=== PATIENT | female | born 1950 | race Caucasian/White ===

== ENCOUNTER 2017-07-07 12:35 | Inpatient (IN) | payer OTHER, MEDICARE ==
[~2017-07-07] VITALS: Ht 167.6 cm; Wt 63.0 kg
[2017-07-07] VITALS (7 sets, daily range): BP systolic 92–209; BP diastolic 60–135; PULSE 86–110; RESP 15–20; TEMP 97.8–98.7; O2SAT 95–98
[2017-07-07] MEDS ORDERED: SODIUM CHLOR 0.9% 1000 ML INJ 1,000 ML IV SCH (14:20)
[2017-07-07] MEDS ORDERED: MORPHINE SULFATE 4 MG/ML INJ IV PUSH ONE (14:30)
[2017-07-07] MEDS ORDERED: SODIUM CHLORIDE 0.9% FLUSH 5 ML FLUSH IV FLUSH PRN (14:30)
[2017-07-07 15:10] LABS: AUTOMATED NEUTROPHIL # 19.9 TH/MM3 (1.8-7.7); BASOPHIL % 0.2 % (0.0-2.0); HEMATOCRIT 33.3 % (35.0-46.0); HEMO FLAGS DIFF FINAL; LYMPH % 6.2 % (9.0-44.0); LYMPHOCYTE # 1.4 TH/MM3 (1.0-4.8); MEAN CELL VOLUME 91.1 FL (80.0-100.0); MEAN CORPUSCULAR HEMOGLOBIN 29.9 PG (27.0-34.0); MEAN CORPUSCULAR HGB CONC 32.8 % (32.0-36.0); MONO % 6.4 % (0.0-8.0); NEUT % 87.2 % (16.0-70.0); PLATELET COUNT 310 TH/MM3 (150-450); RED BLOOD COUNT 3.66 MIL/MM3 (4.00-5.30); RED CELL DISTRIBUTION WIDTH 13.2 % (11.6-17.2); WHITE BLOOD COUNT 22.9 TH/MM3 (4.0-11.0)
[2017-07-07 15:19] LABS: PROTHROMBIN TIME - PATIENT 11.5 SEC (9.8-11.6)
[2017-07-07 15:33] LABS: ANION GAP 7 MEQ/L (5-15); AST (GOT) 19 U/L (15-37); BICARBONATE 27.5 MEQ/L (21.0-32.0); BLOOD UREA NITROGEN 22 MG/DL (7-18); CHLORIDE 109 MEQ/L (98-107); GLOMERULAR FILTRATION RATE 21 ML/MIN (>89); POTASSIUM 4.3 MEQ/L (3.5-5.1); SODIUM (NA) 143 MEQ/L (136-145)
[2017-07-07 15:37] LABS: ALKALINE PHOSPHATASE 90 U/L (45-117); ALT (GPT) 24 U/L (10-53); CREATINE KINASE 214 U/L (26-192); TOTAL BILIRUBIN ADULT 0.5 MG/DL (0.2-1.0)
--- NOTE | 2017-07-07 15:39 | RADRPT ---
EXAM DATE/TIME: 07/07/2017 15:03 [facility] COMPARISON: No previous studies available for comparison. INDICATIONS : Right hip pain after fall. MEDICAL HISTORY : None. SURGICAL HISTORY : None. ENCOUNTER: Initial ACUITY: 1 day PAIN SCORE: Non-responsive. LOCATION: Right Hip. FINDINGS: Examination of the right hip was performed with AP Pelvis. Displaced complete fracture of the right f emoral neck. CONCLUSION: Displaced right femoral neck fracture. Bar Horne MD on July 07, 2017 at 15:34 Board Certified Radiologist. This report was verified electronically.
--- NOTE | 2017-07-07 15:41 | RADRPT ---
EXAM DATE/TIME: 07/07/2017 15:03 [facility] COMPARISON: No previous studies available for comparison. INDICATIONS : Right knee pain after fall. MEDICAL HISTORY : None. SURGICAL HISTORY : None. ENCOUNTER: Initial ACUITY: 1 day PAIN SCORE: Non-responsive. LOCATION: Right Knee. FINDINGS: Four view examination of the right knee demonstrates no evidence of fracture or dislocation. Mild ost eoarthritis. No fracture or effusion. The soft tissues are prominent. CONCLUSION: Mild osteoporosis without fracture. Soft tissue swelling. Bar Horne MD on July 07, 2017 at 15:37 Board Certified Radiologist. This report was verified electronically.
[2017-07-07 15:50] LABS: CKMB 2.4 NG/ML (0.5-3.6)
[2017-07-07] MEDS ORDERED: VANCOMYCIN INJ 1,000 MG in SODIUM CHLOR 0.9% 250 ML INJ 250 ML IV ONE (16:15)
[2017-07-07] MEDS ORDERED: PIPERACIL-TAZO 4.5 GM PREMIX 100 ML IV ONE (16:15)
[2017-07-07] MEDS ORDERED: SODIUM CHLOR 0.9% 1000 ML INJ 1,000 ML IV ONE (16:15)
--- NOTE | 2017-07-07 16:21 | PD ---
HPI Chief Complaint: Fall Time Seen by Provider: 14:09 Travel History International Travel<30 days: No Contact w/Intl Traveler<30days: No Traveled to known affect area: No History of Present Illness HPI Patient was brought in from home by EMS. She lives with her and I'm getting the history from her directly. He says that patient has significant dementia and that time she is cooperative but then at times she does get combative. She has had the diagnosis of dementia for 4-5 years. Patient used to be a hospice nurse prior to that. Last night he was trying to clean her up in the bathroom when she became combative and flung backwards and fell against the bathtub. He try to get her back into the wheelchair and she seemed like she was in pain. She slept through the night and in the morning when he tried to get her up again she seemed like she was complaining of right hip or right knee pain. That's when he decided to bring her to the emergency room. He called 911. Patient is mostly noncommunicative at this point but seems to be in pain and distress. She is a full code at this point. She was tachycardic upon arrival. Patient is unable to give any meaningful history. [facility] Past Medical History Narrative Medical List of her past medical, surgical, social and family history is reviewed from the nursing note. Social History Tobacco Use: No Allergies-Medications (Allergen,Severity, Reaction): Coded Allergies: No Known Allergies (Unverified , 07/07/17) Comments No known drug allergies. Reported Meds & Prescriptions Reported Meds & Active Scripts Active Narrative Medication Awaiting for the nurse to the med reconciliation. Review of Systems Except as stated in HPI: all other systems reviewed are Neg Physical Exam Narrative GENERAL: Lethargic, dementia, confused, nonverbal, moderate distress SKIN: Focused skin assessment warm/dry. HEAD: Atraumatic. Normocephalic. EYES: Pupils equal and round. No scleral icterus. No injection or drainage. ENT: No nasal bleeding or discharge. Mucous membranes pink and moist. NECK: Trachea midline. No JVD. CARDIOVASCULAR: Regular rate and rhythm. No murmur appreciated. RESPIRATORY: No accessory muscle use. Clear to auscultation. Breath sounds equal bilaterally. GASTROINTESTINAL: Abdomen soft, non-tender, nondistended. Hepatic and splenic margins not palpable. MUSCULOSKELETAL: Slight right leg length shortening. No clubbing. No cyanosis. No edema. Patient seems to grimace and is in pain when the right leg at the hip or the knee joint is try to be moved. NEUROLOGICAL: GCS of 12. No obvious cranial nerve deficits. Motor grossly within normal limits. Mostly nonverbal PSYCHIATRIC: Appropriate mood and affect; insight and judgment normal. Data Data Last Documented VS Vital Signs Date Time Temp Pulse Resp B/P (MAP) Pulse Ox O2 Delivery O2 Flow Rate FiO2 07/07/17 16:08 94 18 121/60 (80) 97 Room Air 07/07/17 13:06 97.8 Orders Orders Hip, Uni(Ap&Lat) W Ap Pelvis (07/07/17 ) Knee, Complete (4vws) (07/07/17 ) Electrocardiogram (07/07/17 14:20) Complete Blood Count With Diff (07/07/17 14:20) Comprehensive Metabolic Panel (07/07/17 14:20) Creatine Kinase (Cpk) (07/07/17 14:20) Prothrombin Time / Inr (Pt) (07/07/17 14:20) Troponin I (07/07/17 14:20) Urinalysis - C+S If Indicated (07/07/17 14:20) Blood Glucose (07/07/17 14:20) Ecg Monitoring (07/07/17 14:20) Iv Access Insert/Monitor (07/07/17 14:20) Oximetry (07/07/17 14:20) Sodium Chloride 0.9% Flush (Ns Flush) (07/07/17 14:30) Sodium Chlor 0.9% 1000 Ml Inj (Ns 1000 M (07/07/17 14:20) Morphine Inj (Morphine Inj) (07/07/17 14:30) Lactic Acid (07/07/17 15:25) Blood Culture (07/07/17 15:25) CKMB (07/07/17 14:45) CKMB% (07/07/17 14:45) Sodium Chlor 0.9% 1000 Ml Inj (Ns 1000 M (07/07/17 16:15) Piperacil-Tazo 4.5 Gm Premix (Zosyn 4.5 (07/07/17 16:15) Vancomycin Inj (Vancomycin Inj) (07/07/17 16:15) ^ Straight Catheter (07/07/17 16:21) Chest, Single Ap (07/07/17 ) Admit Order (Ed Use Only) (07/07/17 16:24) Consult Orthopedic (07/07/17 ) Labs Laboratory Tests Test 07/07/17 14:45 White Blood Count 22.9 TH/MM3 Red Blood Count 3.66 MIL/MM3 Hemoglobin 10.9 GM/DL Hematocrit 33.3 % Mean Corpuscular Volume 91.1 FL Mean Corpuscular Hemoglobin 29.9 PG Mean Corpuscular Hemoglobin Concent 32.8 % Red Cell Distribution Width 13.2 % Platelet Count 310 TH/MM3 Mean Platelet Volume 8.8 FL Neutrophils (%) (Auto) 87.2 % Lymphocytes (%) (Auto) 6.2 % Monocytes (%) (Auto) 6.4 % Eosinophils (%) (Auto) 0.0 % Basophils (%) (Auto) 0.2 % Neutrophils # (Auto) 19.9 TH/MM3 Lymphocytes # (Auto) 1.4 TH/MM3 Monocytes # (Auto) 1.5 TH/MM3 Eosinophils # (Auto) 0.0 TH/MM3 Basophils # (Auto) 0.0 TH/MM3 CBC Comment DIFF FINAL Differential Comment Prothrombin Time 11.5 SEC Prothromb Time International Ratio 1.0 RATIO Blood Urea Nitrogen 22 MG/DL Creatinine 2.03 MG/DL Random Glucose 175 MG/DL Total Protein 6.7 GM/DL Albumin 3.4 GM/DL Calcium Level 8.2 MG/DL Alkaline Phosphatase 90 U/L Aspartate Amino Transf (AST/SGOT) 19 U/L Alanine Aminotransferase (ALT/SGPT) 24 U/L Total Bilirubin 0.5 MG/DL Sodium Level 143 MEQ/L Potassium Level 4.3 MEQ/L Chloride Level 109 MEQ/L Carbon Dioxide Level 27.5 MEQ/L Anion Gap 7 MEQ/L Estimat Glomerular Filtration Rate 21 ML/MIN Total Creatine Kinase 214 U/L Creatine Kinase MB 2.4 NG/ML Creatine Kinase MB % 1.1 % Troponin I 0.04 NG/ML [facility] Medical Decision Making Medical Screen Exam Complete: Yes Emergency Medical Condition: Yes Medical Record Reviewed: Yes Differential Diagnosis Right hip fracture, right knee fracture, UTI, intracranial bleed Narrative Course 4:20 PM x-ray shows right femoral neck fracture. Blood test results is suggestive of leukocytosis and possibly sepsis. Patient has been given 2 L of IV fluid bolus and I ordered IV Zosyn and vancomycin to cover infection. For UA and lactic acid. Patient has renal failure. Awaiting for the orthopedist to call back and the hospitalist for admission. Procedures EKG Prior to Arrival: No Physician Communication Physician Communication Dr. Culp Diagnosis Primary Impression: Femoral neck fracture Qualified Codes: S72.001A - Fracture of unspecified part of neck of right femur, initial encounter for closed fracture Additional Impressions: Sepsis Qualified Codes: A41.9 - Sepsis, unspecified organism Renal insufficiency Dementia Qualified Codes: F03.91 - Unspecified dementia with behavioral disturbance Admitting Information Admitting Physician Requests: Admit Scripts Calcium Carbonate-Vitamin D (Calcium 600+D 200) 600-200 Mg-Unit Tab 1 TAB PO BID for Nutritional Supplement, #90 TAB 0 Refills Prov: Yasmany Bergeron Jr. 07/08/17 Ergocalciferol (Ergocalciferol) 50,000 Unit Cap 98495 UNITS PO Q7D for Nutritional Supplement, #8 CAP Prov: Yasmany Bergeron Jr. 07/08/17 Rivaroxaban (Xarelto) 10 Mg Tab 10 MG PO DAILY for Blood Clot Prevention, #14 TAB 0 Refills Prov: Yasmany Bergeron Jr. 07/08/17 Hydrocodone-Acetaminophen (Hydrocodone-Acetaminophen) 7.5-325 mg Tab 1 TAB PO Q4H Y for PAIN, #50 TAB 0 Refills Prov: Yasmany Bergeron Jr. 07/08/17 Dariela Vidal MD Jul 07, 2017 16:21
--- NOTE | 2017-07-07 16:47 | RADRPT ---
EXAM DATE/TIME: 07/07/2017 16:30 [facility] COMPARISON: No previous studies available for comparison. INDICATIONS : Syncope, pre op right hip fracture. MEDICAL HISTORY : unobtainable SURGICAL HISTORY : unobtainable ENCOUNTER: Subsequent ACUITY: 1 day PAIN SCORE: Non-responsive. LOCATION: Bilateral chest FINDINGS: Portable AP view of the chest demonstrates a normal-sized cardiac silhouette. No effusion, consolidat ion, or pneumothorax is visualized. The bones and soft tissues demonstrate no acute abnormality. Ther e degenerative changes of the thoracic spine with mild dextroscoliosis. CONCLUSION: No acute cardiopulmonary abnormality is identified. Roel King MD on July 07, 2017 at 16:45 Board Certified Radiologist. This report was verified electronically.
[2017-07-07 16:56] LABS: BLOOD, URINE NEG (NEG); GLUCOSE,URINE NEG (NEG); HYALINE CAST, URINE 4 /lpf (RARE); KETONE, URINE 10 mg/dL (NEG); MUCUS URINE FEW /lpf (OCC); NITRITE,URINE NEG (NEG); PH, URINE 6.5 (5.0-8.5); URINE COLOR YELLOW (YELLW/STRAW)
[2017-07-07 16:58] LABS: COMMENT (UR) CATH-CULT NOT IND; CULTURE IF INDICATED CATH CULTURE NOT IND
[2017-07-07] MEDS ORDERED: ACETAMINOPHEN 325 MG TAB PO PRN (17:00)
[2017-07-07] MEDS ORDERED: ONDANSETRON HCL 4 MG/2 ML VIAL IVP PRN (17:00)
[2017-07-07] MEDS ORDERED: SODIUM CHLORIDE 0.9% FLUSH 10 ML FLUSH IV FLUSH PRN (17:00)
[2017-07-07] MEDS ORDERED: BISACODYL 10 MG SUPP RECTAL PRN (17:00)
[2017-07-07] MEDS ORDERED: NALOXONE HCL 0.4 MG/ML AMP IV PUSH PRN (17:00)
[2017-07-07] MEDS ORDERED: LACTULOSE SYRUP 20 GM/30 ML CUP PO PRN (17:00)
[2017-07-07] MEDS ORDERED: MAGNESIUM HYDROXIDE SUSP 30 ML CUP PO PRN (17:00)
[2017-07-07] MEDS ORDERED: SENNOSIDES 8.6 MG TAB PO PRN (17:00)
[2017-07-07] MEDS ORDERED: Vancomycin Consult Pharmacy 1 EA OTHER SCH (17:15)
--- NOTE | 2017-07-07 17:15 | HHI.HP ---
[facility] No Primary Care Physician Admission Diagnosis hip fracture, dementia, sepsis, renal insufficiency Diagnoses: Chief Complaint: fall Travel History International Travel<30 Days: No Contact w/Intl Traveler <30 Da: No Traveled to Known Affected Are: No History of Present Illness This is a 67-year-old female with severe dementia who presented with a fall. History taken from patient's . Patient's stated that he tried to change her clothes but she was agitated and she fell and hit the tub. Patient did not hit her head and did not lose any consciousness. When tried to move patient she was in pain so he took her to the hospital. stated that patient has been diagnosed with dementia like 4-5 years ago. She was told by a neurologist here that she has senile dementia . At baseline patient does not speak. He stated maybe once in a while she would say some words. She intermittently follows commands and becomes agitated at times. This has been worsening over time. Patient has good appetite. She is in a diaper. Dealt with patient's nurse and she stated that patient has stool in her vaginal area and around her urethra area. denied any changes in behavior before her fall. Denies any fevers or chills. He stated that she was acting her normal self before the fall. Patient has not had labs done in many years. Unsure if patient has chronic kidney disease but stated that he was never told this. Unable to get review of system since patient's severe dementia. Patient is nonverbal. Past Family Social History Past Medical History Severe dementia Depression Past Surgical History Per patient's he does not recall any surgeries. Reported Medications Namenda Lamictal Allergies: Coded Allergies: No Known Allergies (Unverified , 07/07/17) Active Ordered Medications Current Medications IV Flush (NS Flush) 2 ml UNSCH PRN IV FLUSH FLUSH AFTER USING IV ACCESS; Start 07/07/17 at 14:30; Stop 07/07/17 at 17:07; Status DC Sodium Chloride 1,000 ml @ 1,000 mls/hr Q1H IV Last administered on 07/07/17 14:47; Start 07/07/17 at 14:20; Stop 07/07/17 at 15:19; Status DC Morphine Sulfate (Morphine Inj) 4 mg ONCE ONCE IV PUSH Last administered on 14:47; Start 07/07/17 at 14:30; Stop 07/07/17 at 14:31; Status DC Sodium Chloride 1,000 ml @ 999 mls/hr BOLUS ONCE IV Last administered on 07/07 16:53; Start 07/07/17 at 16:15; Stop 07/07/17 at 17:15; Status DC Piperacillin Sod/ Tazobactam Sod 100 ml @ 200 mls/hr ONCE ONCE IV Last administered on 07/07/17 16:53; Start 07/07/17 at 16:15; Stop 07/07/17 at 16:44 ; Status DC Vancomycin HCl 1000 mg/Sodium Chloride 250 ml @ 250 mls/hr ONCE ONCE IV Last administered on 07/07/17 16:53; Start 07/07/17 at 16:15; Stop 07/07/17 at 17:14 ; Status DC Sodium Chloride 1,000 ml @ 100 mls/hr Q10H IV ; Start 07/07/17 at 17:00 Sodium Chloride (NS Flush) 2 ml UNSCH PRN IV FLUSH FLUSH AFTER USING IV ACCESS ; Start 07/07/17 at 17:00 Sodium Chloride (NS Flush) 2 ml BID IV FLUSH ; Start 07/07/17 at 21:00 Acetaminophen (Tylenol) 650 mg Q4H PRN PO TEMP > 100.4; Start 07/07/17 at 17:00 Ondansetron HCl (Zofran Inj) 4 mg Q6H PRN IVP NAUSEA OR VOMITING; Start at 17:00 Naloxone HCl (Narcan Inj) 0.4 mg UNSCH PRN IV PUSH SEE LABEL COMMENTS; Start at 17:00 Senna/Docusate Sodium (Renuka-Colace) 1 tab BID PO ; Start 07/07/17 at 21:00 Magnesium Hydroxide (Milk Of Magnesia Liq) 30 ml Q12H PRN PO MILD - MODERATE CONSTIPATION; Start 07/07/17 at 17:00 Sennosides (Senokot) 17.2 mg Q12H PRN PO MODERATE - SEVERE CONSTIPATION; Start 07/07/17 at 17:00 Bisacodyl (Dulcolax Supp) 10 mg DAILY PRN RECTAL SEVERE CONSITIPATION; Start at 17:00 Lactulose (Lactulose Liq) 30 ml DAILY PRN PO SEVERE CONSITIPATION; Start at 17:00 Pharmacy Profile Note 0 ml @ 0 mls/hr UNSCH OTHER ; Start 07/07/17 at 17:15 Cefepime HCl 1000 mg/Sodium Chloride 100 ml @ 200 mls/hr Q24H IV ; Start at 18:00 Family History Father had a history of heart disease at the age of 80. Mother had MS at the age of 59. Social History Patient lives with her . She was able to ambulate prior to this event. She relies 100% on her . No history of alcohol, tobacco or illicit drug use. Physical Exam Vital Signs Vital Signs Date Time Temp Pulse Resp B/P (MAP) Pulse Ox O2 Delivery O2 Flow Rate FiO2 07/07/17 13:06 97.8 110 20 118/72 (87) 98 Physical Exam GENERAL: This is frail thin female in NAD SKIN: No rashes, ecchymoses or lesions. Cool and dry. HEAD: Atraumatic. Normocephalic. No temporal or scalp tenderness. EYES: Pupils equal round and reactive. Extraocular motions intact. No scleral icterus. No injection or drainage. ENT: Nose without bleeding, purulent drainage or septal hematoma. Throat without erythema, tonsillar hypertrophy or exudate. Uvula midline. Airway patent. NECK: Trachea midline. No JVD or lymphadenopathy. Supple, nontender, no meningeal signs. CARDIOVASCULAR: Regular rate and rhythm without murmurs, gallops, or rubs. RESPIRATORY: Clear to auscultation. Breath sounds equal bilaterally. No wheezes , rales, or rhonchi. GASTROINTESTINAL: Abdomen soft, non-tender, nondistended. No hepato-splenomegaly , or palpable masses. No guarding. MUSCULOSKELETAL: Negative lower ext edema. NEUROLOGICAL: patient is awake but is nonverbal. Moves her upper extremities freely. Exam limited secondary to severe dementia. When I try to move patient she grimace. Laboratory Laboratory Tests Test 07/07/17 14:45 07/07/17 16:35 White Blood Count 22.9 Red Blood Count 3.66 Hemoglobin 10.9 Hematocrit 33.3 Mean Corpuscular Volume 91.1 Mean Corpuscular Hemoglobin 29.9 Mean Corpuscular Hemoglobin Concent 32.8 Red Cell Distribution Width 13.2 Platelet Count 310 Mean Platelet Volume 8.8 Neutrophils (%) (Auto) 87.2 Lymphocytes (%) (Auto) 6.2 Monocytes (%) (Auto) 6.4 Eosinophils (%) (Auto) 0.0 Basophils (%) (Auto) 0.2 Neutrophils # (Auto) 19.9 Lymphocytes # (Auto) 1.4 Monocytes # (Auto) 1.5 Eosinophils # (Auto) 0.0 Basophils # (Auto) 0.0 CBC Comment DIFF FINAL Differential Comment Prothrombin Time 11.5 Prothromb Time International Ratio 1.0 Blood Urea Nitrogen 22 Creatinine 2.03 Random Glucose 175 Total Protein 6.7 Albumin 3.4 Calcium Level 8.2 Alkaline Phosphatase 90 Aspartate Amino Transf (AST/SGOT) 19 Alanine Aminotransferase (ALT/SGPT) 24 Total Bilirubin 0.5 Sodium Level 143 Potassium Level 4.3 Chloride Level 109 Carbon Dioxide Level 27.5 Anion Gap 7 Estimat Glomerular Filtration Rate 21 Total Creatine Kinase 214 Creatine Kinase MB 2.4 Creatine Kinase MB % 1.1 Troponin I 0.04 Urine Color YELLOW Urine Turbidity CLEAR Urine pH 6.5 Urine Specific Gardner 1.018 Urine Protein 30 Urine Glucose (UA) NEG Urine Ketones 10 Urine Occult Blood NEG Urine Nitrite NEG Urine Bilirubin NEG Urine Urobilinogen 2.0 Urine Leukocyte Esterase NEG Urine RBC 6 Urine WBC 1 Urine Hyaline Casts 4 Urine Mucus FEW Microscopic Urinalysis Comment CATH-CULT NOT IND Date/Time Source Procedure Growth Status 07/07/17 16:40 Blood Peripheral Aerobic Blood Culture Pending Received 07/07/17 16:40 Blood Peripheral Anaerobic Blood Culture Pending Received Result Diagram: 07/07/17 1445 07/07/17 1445 Imaging Last Impressions Knee X-Ray 07/07/17 0000 Signed Impressions: Service Date/Time: Friday, July 07, 2017 15:03 - CONCLUSION: Mild osteoporosis without fracture. Soft tissue swelling. Bar Horne MD Hip and Pelvis X-Ray 07/07/17 0000 Signed Impressions: Service Date/Time: Friday, July 07, 2017 15:03 - CONCLUSION: Displaced right femoral neck fracture. Bar Horne MD Chest X-Ray 07/07/17 0000 Signed Impressions: Service Date/Time: Friday, July 07, 2017 16:30 - CONCLUSION: No acute cardiopulmonary abnormality is identified. Roel King MD Septic Shock Reassessment Heart: Regular rate and rhythm Lungs: Clear Skin: Warm Caprini VTE Risk Assessment Caprini VTE Risk Assessment: Mod/High Risk (score >= 2) VTE Pharm Contraindication: Caprini Risk Assessment Model Point Value = 1 Point Value = 2 Point Value = 3 Point Value = 5 Age 41-60 Minor surgery BMI > 25 kg/m2 Swollen legs Varicose veins or History of unexplained or recurrent spontaneous Oral contraceptives or hormone replacement Sepsis (< 1 month) Serious lung disease, including pneumonia (< 1 month) Abnormal pulmonary function Acute myocardial infarction Congestive heart failure (< 1 month) History of inflammatory bowel disease Medical patient at bed rest Age 61-74 Arthroscopic surgery Major open surgery (> 45 min) Laparoscopic surgery (> 45 min) Malignancy Confined to bed (> 72 hours) Immobilizing plaster cast Central venous access Age >= 75 History of VTE Family history of VTE Factor V Leiden Prothrombin [id number] Lupus anticoagulant Anticardiolipin antibodies Elevated serum homocysteine Heparin-induced thrombocytopenia Other congenital or acquired thrombophilia Stroke (< 1 month) Elective arthroplasty Hip, pelvis, or leg fracture Acute spinal cord injury (< 1 month) Prophylaxis Regimen Total Risk Factor Score Risk Level Prophylaxis Regimen 0-1 Low Early ambulation 2 Moderate Order ONE of the following: *Sequential Compression Device (SCD) *Heparin 5000 units SQ BID 3-4 Higher Order ONE of the following medications: *Heparin 5000 units SQ TID *Enoxaparin/Lovenox 40 mg SQ daily (WT < 150 kg, CrCl > 30 mL/min) *Enoxaparin/Lovenox 30 mg SQ daily (WT < 150 kg, CrCl > 10-29 mL/min) *Enoxaparin/Lovenox 30 mg SQ BID (WT < 150 kg, CrCl > 30 mL/min) AND/OR *Sequential Compression Device (SCD) 5 or more Highest Order ONE of the following medications: *Heparin 5000 units SQ TID (Preferred with Epidurals) *Enoxaparin/Lovenox 40 mg SQ daily (WT < 150 kg, CrCl > 30 mL/min) *Enoxaparin/Lovenox 30 mg SQ daily (WT < 150 kg, CrCl > 10-29 mL/min) *Enoxaparin/Lovenox 30 mg SQ BID (WT < 150 kg, CrCl > 30 mL/min) AND *Sequential Compression Device (SCD) Assessment and Plan Assessment and Plan 67-year-old female with a history of severe dementia presented with a fall Right femoral neck fracture -Secondary to mechanical fall. Found on chest x-ray. -Orthopedic surgery consulted by ED. -Will give supportive care with pain control pending recommendation from orthopedic surgeon. SIRS -Patient has elevated WBC around 22,000 and heart rate 110. UA negative and chest x-ray negative. No infectious source. -Patient given Zosyn and vancomycin the ED. Will treat empirically for infection pending complete workup. Continue with vancomycin and start cefepime renally dose. We will have pharmacy dose vancomycin. -Will get blood cultures x2. Pending lactic acid. Monitor over telemetry. Give IV fluids. -Continue to monitor clinically. Renal failure -Unsure if this is acute renal failure versus chronic versus acute on chronic renal failure. There is no baseline. BUN is elevated will suggest dehydration. -Strict ins and outs. -Avoid nephrotoxins. -Continue to monitor creatinine. Severe dementia -Will resume home medication once medication is updated in the EMR system. DVT prophylaxis -Anticipating surgery. SCDs. Chemoprophylaxis per orthopedic surgeon. Due to severe dementia which will affect her rehabilitation potential patient has a poor prognosis. Code Status Extensive discussion with patient's in regards to code status. He stated that he thinks patient wants to be a DO NOT RESUSCITATE but is unsure. Per keep patient full code until he obtains advanced directive. Discussed Condition With patient's and ER nurse Physician Certification 2 Midnight Certification Type: Admission for Inpatient Services Order for Inpatient Services The services are ordered in accordance with Medicare regulations or non- Medicare payer requirements, as applicable. In the case of services not specified as inpatient-only, they are appropriately provided as inpatient services in accordance with the 2-midnight benchmark. Estimated LOS (days): 3 3 days is the estimated time the patient will need to remain in the hospital, assuming treatment plan goals are met and no additional complications. Post-Hospital Plan: [facility] Jacqueline Boateng MD Jul 07, 2017 17:15
[2017-07-07] MEDS ORDERED: MORPHINE SULFATE 4 MG/ML INJ IV PUSH PRN (18:00)
[2017-07-07] MEDS: SODIUM CHLOR 0.9% 1000 ML INJ 1,000 ML IV SCH ×2 (18:06→23:45)
[2017-07-07] MEDS: DOCUSATE SODIUM 50 MG/SENNA 8.6 MG TAB PO SCH (21:00)
[2017-07-07] MEDS: SODIUM CHLORIDE 0.9% FLUSH 10 ML FLUSH IV FLUSH SCH (21:00)
[2017-07-07] MEDS: CEFEPIME INJ 1,000 MG in SODIUM CHLORIDE 0.9% INJ 100 ML IV SCH (21:06)
--- NOTE | 2017-07-07 23:30 | EKG ---
Date Performed: 07/07/2017 Time Performed: 18:05:57 PTAGE: 89 years EKG: Sinus rhythm LOW QRS VOLTAGE IN PRECORDIAL LEADS INFERIOR MYOCARDIAL INFARCTION ABNORMAL ECG NO PREVIOUS TRACING DOCTOR: Chao Fu Interpretating Date/Time 07/07/2017 23:30:06
[2017-07-07] MEDS ORDERED: CHLORHEXIDINE GLUCONATE 2 % 1 PACK (2 CLOTHS) TOPICAL PRN (23:45)
[2017-07-07] MEDS ORDERED: POVIDONE IODINE 5% (ANTISEPSIS KIT) 4 APPLICATIONS EACH NARE PRN (23:45)
[2017-07-07] MEDS ORDERED: INSULIN HUMAN REGULAR 1,000 UNITS/10 ML VIAL SQ PRN (23:45)
[2017-07-07] MEDS ORDERED: LACTATED RINGER'S 1000 ML IV PRN (23:45)
[2017-07-08 04:00] VITALS: BP 136/71; PULSE 118; RESP 15; TEMP 98.6; O2SAT 90
[2017-07-08] MEDS: SODIUM CHLOR 0.9% 1000 ML INJ 1,000 ML IV SCH ×2 (04:56→23:00)
--- NOTE | 2017-07-08 06:42 | PD.ORT.PN ---
Subjective Subjective Remarks s/p fall at [facility] right hip pain. patient severely demented and cannot give any info Objective Vitals Vital Signs Date Time Temp Pulse Resp B/P (MAP) Pulse Ox O2 Delivery O2 Flow Rate FiO2 07/07/17 21:10 89 07/07/17 19:00 98.7 86 15 92/63 (73) 95 07/07/17 18:35 07/07/17 18:00 92 17 119/83 (95) 97 Room Air 07/07/17 16:30 92 17 117/61 (79) 97 Room Air 07/07/17 16:08 94 18 121/60 (80) 97 Room Air 07/07/17 14:06 95 18 209/135 (159) 97 Room Air 07/07/17 14:06 80 16 98 Room Air 07/07/17 13:06 97.8 110 20 118/72 (87) 98 I/O 07/07/17 07/07/17 07/07/17 07/08/17 07/08/17 07/08/17 07:00 15:00 23:00 07:00 15:00 23:00 Intake Total 2200 ml 1100 ml Balance 2200 ml 1100 ml Intake IV Total 2200 ml 1100 ml Result Diagram: 07/07/17 1445 07/07/17 1445 Other Results Laboratory Tests Test 07/07/17 14:45 Prothromb Time International Ratio 1.0 RATIO Prothrombin Time 11.5 SEC (9.8-11.6) Objective Remarks RLE: good movement of toes and foot. +cap refill distally. pain with movement of hip Assessment & Plan Assessment and Plan 1) right Intertroch hip fx -npo -consents from family -surgery today Rasheed Escobar Jul 08, 2017 06:42
[2017-07-08 07:05] LABS: HEMATOCRIT 23.2 % (35.0-46.0); MEAN CELL VOLUME 91.5 FL (80.0-100.0); MEAN CORPUSCULAR HEMOGLOBIN 30.3 PG (27.0-34.0); MEAN CORPUSCULAR HGB CONC 33.1 % (32.0-36.0); PLATELET COUNT 210 TH/MM3 (150-450); RED BLOOD COUNT 2.53 MIL/MM3 (4.00-5.30); RED CELL DISTRIBUTION WIDTH 13.1 % (11.6-17.2); REVIEW FLAG FINAL; WHITE BLOOD COUNT 18.4 TH/MM3 (4.0-11.0)
[2017-07-08 07:25] LABS: BICARBONATE 26.8 MEQ/L (21.0-32.0)
[2017-07-08 07:39] VITALS: BP 97/67; PULSE 96; RESP 18; TEMP 97.8; O2SAT 91
[2017-07-08] MEDS: SODIUM CHLORIDE 0.9% FLUSH 10 ML FLUSH IV FLUSH SCH (09:00)
[2017-07-08] MEDS: DOCUSATE SODIUM 50 MG/SENNA 8.6 MG TAB PO SCH ×2 (09:00→21:30)
[2017-07-08] MEDS ORDERED: SODIUM CHLOR 0.9% 250 ML INJ 250 ML ONE (09:32)
[2017-07-08] MEDS ORDERED: GENTAMICIN SULFATE 80 MG/2 ML VIAL ONE (09:32)
[2017-07-08] MEDS ORDERED: VANCOMYCIN HCL 1000 MG VIAL ONE (09:32)
[2017-07-08] MEDS ORDERED: BUPIVACAINE/EPINEPHRINE 0.5% PF 10 ML VIAL ONE (09:32)
[2017-07-08] MEDS: VANCOMYCIN 1,000 MG/NS 250 ML IV SCH ×4 (10:00→21:31)
[2017-07-08] MEDS ORDERED: KETAMINE HCL 500 MG/5 ML VIAL ONE (10:04)
--- NOTE | 2017-07-08 10:33 | MB ---
cc: LINO VENCES DATE OF CONSULTATION: 07/08/2017 REASON FOR CONSULTATION Right hip intertrochanteric fracture. CONSULTING PHYSICIAN Dr. Jacqueline Boateng. HISTORY OF PRESENT ILLNESS This patient known as Mavis Montes De Oca, also known as Terri Cardona, is a 67-year-old female who has significant dementia. She had a fall yesterday. She was trying to change clothes when she fell. She did not hit her head. She had severe right hip pain. She presented to the emergency room where x-rays revealed a right hip intertrochanteric fracture. She is currently on the orthopedic floor. She is awake but significantly confused. She is unable to provide any significant history. PAST MEDICAL HISTORY ILLNESSES Dementia and depression. SURGERIES None. MEDICATIONS ___ and Lamictal. ALLERGIES None. SOCIAL HISTORY The patient lives at home with her . She does ambulate independently. There is no history of alcohol, tobacco or drug use. REVIEW OF SYSTEMS Unobtainable secondary to dementia. FAMILY HISTORY Positive for heart disease in father and MS in mother. REVIEW OF SYSTEMS Unobtainable. PHYSICAL EXAMINATION GENERAL: The patient is a thin 67-year-old female who is confused secondary to significant dementia. She is awake but unable to provide history. VITAL SIGNS: Temperature 97.8, pulse 96, respirations 18, blood pressure 97/67, O2 sat 91% on room air. HEAD: The patient is normocephalic. Pupils are equal. NECK: Soft, nontender. Trachea is midline. ABDOMEN: Soft, nontender, nondistended. EXTREMITIES: Examination of bilateral upper extremities reveals no obvious pain or deformity with shoulder, elbow or wrist motion. She has good cap refill in her fingers. Radial pulses are palpable. Examination of left leg reveals no obvious pain or deformity with hip, knee or ankle motion. Skin is intact. Dorsalis pedis pulses palpable. Examination of right leg reveals pain with any hip motion. She has no tenderness around her knee, tibia or ankle. Skin is intact. She has good cap refill in her foot. X-RAYS X-rays of right hip were reviewed. X-rays reveal a mildly displaced right hip intertrochanteric fracture. IMPRESSION 1. Dementia. 2. Osteoporosis. 3. Right hip intertrochanteric fracture. PLAN Treatment options were discussed with the patient. At this point I will try to contact her to obtain consents. The patient will need reduction, intramedullary nail fixation of right hip. Risks of surgery include bleeding, infection, injuries to arteries, nerves, blood vessels, nonunion, malunion, painful hardware as well as medical complications including blood clot, stroke, heart attack and . All questions were answered. Will plan on surgery today. A mid-level provider in my office, nurse practitioner or PA, may see this patient on a follow-up basis and continue to implement the objective of this plan including: Starting or adjusting medications, injections of muscle, tendon, bursa or joints, cast application, orthotic or brace application, physical therapy, further radiographic studies including x-ray, MRI, CT, ultrasounds or bone scan, vascular studies, neurologic studies, or other specialist consultations, and proceeding with surgical management as appropriate. MD BUD Ribeiro/JOVI /10:02 AM /10:12 AM
[2017-07-08] MEDS ORDERED: SUGAMMADEX SODIUM 200 MG/2 ML VIAL IV PUSH ONE ×2 (10:44)
[2017-07-08] MEDS ORDERED: SODIUM CHLORIDE 0.9% FLUSH 5 ML FLUSH IVF PRN (10:45)
[2017-07-08] MEDS ORDERED: diphenhydrAMINE HCL 25 MG CAP PO PRN (10:45)
--- NOTE | 2017-07-08 11:09 | PD.OP ---
cc: Willy Zacarias MD Operative Report Date of Surgery: Jul 08, 2017 Preoperative Diagnosis: Right hip intertrochanteric fracture Postoperative Diagnosis: Procedure: Right hip reduction and intramedullary nail fixation Anesthesia: Gen. Surgeon: Willy Zacarias Glost Tile Shader(s): FARTUN Rosenthal PA-C The surgical procedure was assisted by my physician workers compensation claims assistant. My P.A. presence was necessary throughout this case for the manipulation and positioning of the surgical extremity. My P.A. was assisting me throughout the duration of this procedure. The skill set of a physician workers compensation claims assistant was medically necessary to complete this procedure. During the surgical case the nursing surgical services director was working at the back table and the physician workers compensation claims assistant was directly assisting me. Operation and Findings: Implants used: [11]mm 130 Synthes TFNA short troch nail Plan of activity: Weight-bear as tolerated Patient was seen and evaluated preoperatively. The patient has significant hip pain from intertrochanteric hip fracture. The risk and benefits of surgery were discussed in depth with the patient to include bleeding infection nonunion malunion and need for hip replacement painful hardware as well as medical competitions including but not stroke heart attack and . Informed consent was obtained. Operative site was marked. Patient was brought to the operating room and placed on fracture table. IV sedation was administered by anesthesiologist. Timeout procedure was performed. Hip and leg were prepped with alcohol followed by DuraPrep and draped in the usual sterile fashion. IV antibiotics were given prior to incision. Procedure began with reduction of fracture. Traction was applied. The leg was manipulated to achieve reduction. Excellent reduction was achieved. Fluoroscopy was used to confirm reduction. A three inch incision was made proximal to the trochanter. Subcutaneous tissue was dissected bluntly. Guidepin was placed at the tip of the trochanter and advanced into the femoral canal. Fluoroscopy confirmed appropriate guidepin placement. A opening reamer was placed over the guidepin. The Synthes TFNA nail was attached to the insertion handle. Nail was now placed through the tip of the trochanter into the femoral canal. Fluoroscopy confirmed appropriate nail placement. A second incision was made over the lateral thigh. Cannulas were placed through the insertion handle down to the femur. Guidepin was now placed through the femoral nail into the center of the femoral head. Fluoroscopy confirmed appropriate guidepin placement. Screw length was measured. Cannulated drill was placed over the guidepin. Appropriate length lag screw was now placed. Traction was released and compression was applied. The set screw was now tightened in dynamic mode. Using the insertion handle as a guide a distal interlocking screw was drilled and placed. Final fluoroscopy revealed well aligned fracture with well-placed hardware. Incision was closed with 3-0 Vicryl and rashmi. Sterile dressings were applied. Patient was awakened and transferred to recovery room. Willy Zacarias MD Jul 08, 2017 10:47
[2017-07-08] MEDS ORDERED: DO NOT ADM ANY ANTICOAGULANT DRUGS PRN (11:10)
[2017-07-08] MEDS ORDERED: WALKER/ADULT/FO1 MIS (11:13)
[2017-07-08] MEDS ORDERED: ERGO1CAP30 PO (11:13)
[2017-07-08] MEDS ORDERED: CALCTAB19 PO (11:13)
[2017-07-08] MEDS ORDERED: HYDR-3580 PO (11:13)
[2017-07-08] MEDS ORDERED: XARE10TA PO (11:13)
[2017-07-08] MEDS ORDERED: *RESP: ALBUTEROL 2.5 MG/3 ML NEB (PRN) PERIprocedural Use ONLY NEB ONE (11:25)
[2017-07-08] MEDS ORDERED: ERGOCALCIFEROL (VIT D2) 50,000 UNIT CAP PO ONE (12:30)
[2017-07-08] MEDS ORDERED: ROCURONIUM INJ 50 MG/5 ML SYRINGE IV PUSH ONE (12:36)
[2017-07-08] MEDS ORDERED: ONDANSETRON HCL 4 MG/2 ML VIAL IV PUSH ONE (12:36)
[2017-07-08] MEDS ORDERED: PHENYLEPH/NS 1000 MCG/10 ML SYR IV ONE (12:36)
[2017-07-08] MEDS ORDERED: DEXAMETHASONE SOD PHOS 4 MG/ML VIAL IV ONE (12:36)
[2017-07-08] MEDS ORDERED: LIDOCAINE HCL 1% PF 5 ML AMPULE OTHER ONE (12:36)
[2017-07-08] MEDS: CALCIUM/VITAMIN D 250 MG/125 U TAB PO SCH ×2 (13:00→17:33)
--- NOTE | 2017-07-08 14:55 | RADRPT ---
EXAM DATE/TIME: 07/08/2017 10:41 [facility] COMPARISON: No previous studies available for comparison. INDICATIONS : Right hip troch nail. MEDICAL HISTORY : None. SURGICAL HISTORY : None. ENCOUNTER: Subsequent ACUITY: 1 day PAIN SCORE: Non-responsive. LOCATION: Right hip CONCLUSION: Fluoroscopic images during placement of dynamic compression pin in right hip. Bar Horne MD on July 08, 2017 at 14:53 Board Certified Radiologist. This report was verified electronically.
[2017-07-08 15:53] VITALS: BP 114/64; PULSE 81; RESP 18; TEMP 95.9; O2SAT 91
[2017-07-08] MEDS: CEFEPIME INJ 1,000 MG in SODIUM CHLORIDE 0.9% INJ 100 ML IV SCH (17:37)
--- NOTE | 2017-07-08 19:29 | HHI.PR ---
Subjective Remarks Pain controlled patient denies fevers/chills denies cp/sob no diarrhea Objective Vitals Vital Signs Date Time Temp Pulse Resp B/P (MAP) Pulse Ox O2 Delivery O2 Flow Rate FiO2 07/08/17 15:53 95.9 81 18 114/64 (81) 91 07/08/17 12:20 97.8 94 15 113/84 (94) 93 Nasal Cannula 3 07/08/17 12:00 85 17 107/74 (85) 93 Nasal Cannula 3 07/08/17 11:45 86 16 104/61 (75) 93 Nasal Cannula 3 07/08/17 11:30 85 15 124/62 (82) 95 Nasal Cannula 3 07/08/17 11:12 97.5 85 15 127/59 (81) 93 Simple Mask 6 07/08/17 07:39 97.8 96 18 97/67 (77) 91 07/08/17 04:00 98.6 118 15 136/71 (92) 90 07/07/17 21:10 89 I/O 07/07/17 07/07/17 07/07/17 07/08/17 07/08/17 07/08/17 07:00 15:00 23:00 07:00 15:00 23:00 Intake Total 2200 ml 1100 ml 85 ml Output Total 200 ml 375 ml Balance 2200 ml 900 ml -290 ml Intake Oral 0 ml 10 ml IV Total 2200 ml 1100 ml 75 ml Output Urine Total 200 ml 375 ml # Bowel Movements 0 0 Result Diagram: 07/08/17 0622 07/08/17 0622 Imaging Last Impressions Hip X-Ray 07/08/17 0000 Signed Impressions: Service Date/Time: June 10:41 - CONCLUSION: Fluoroscopic images during placement of dynamic compression pin in right hip. Bar Horne MD Knee X-Ray 07/07/17 0000 Signed Impressions: Service Date/Time: Friday, July 07, 2017 15:03 - CONCLUSION: Mild osteoporosis without fracture. Soft tissue swelling. Bar Horne MD Hip and Pelvis X-Ray 07/07/17 0000 Signed Impressions: Service Date/Time: Friday, July 07, 2017 15:03 - CONCLUSION: Displaced right femoral neck fracture. Bar Horne MD Chest X-Ray 07/07/17 0000 Signed Impressions: Service Date/Time: Friday, July 07, 2017 16:30 - CONCLUSION: No acute cardiopulmonary abnormality is identified. Roel King MD Objective Remarks GENERAL: This is frail thin female in NAD SKIN: No rashes, ecchymoses or lesions. Cool and dry. HEAD: Atraumatic. Normocephalic. No temporal or scalp tenderness. EYES: Pupils equal round and reactive. Extraocular motions intact. No scleral icterus. No injection or drainage. ENT: Nose without bleeding, purulent drainage or septal hematoma. Throat without erythema, tonsillar hypertrophy or exudate. Uvula midline. Airway patent. NECK: Trachea midline. No JVD or lymphadenopathy. Supple, nontender, no meningeal signs. CARDIOVASCULAR: Regular rate and rhythm without murmurs, gallops, or rubs. RESPIRATORY: Clear to auscultation. Breath sounds equal bilaterally. No wheezes , rales, or rhonchi. GASTROINTESTINAL: Abdomen soft, non-tender, nondistended. No hepato-splenomegaly , or palpable masses. No guarding. MUSCULOSKELETAL: Negative lower ext edema. NEUROLOGICAL: patient is awake but is nonverbal. Moves her upper extremities freely. Exam limited secondary to severe dementia. When I try to move patient she grimace. Medications and IVs Current Medications Medications (Trade) Dose Ordered Sig/Chris Route Start Time Stop Time Status Last Admin Sodium Chloride 1,000 ml @ 100 mls/hr Q10H IV 07/07/17 17:00 07/08/17 04:56 (Tylenol) 650 mg Q4H PRN PO 07/07/17 17:00 (Zofran Inj) 4 mg Q6H PRN IVP 07/07/17 17:00 (Narcan Inj) 0.4 mg UNSCH PRN IV PUSH 07/07/17 17:00 (Renuka-Colace) 1 tab BID PO 07/07/17 21:00 07/08/17 21:30 (Milk Of Magnesia Liq) 30 ml Q12H PRN PO 07/07/17 17:00 (Senokot) 17.2 mg Q12H PRN PO 07/07/17 17:00 (Dulcolax Supp) 10 mg DAILY PRN RECTAL 07/07/17 17:00 (Lactulose Liq) 30 ml DAILY PRN PO 07/07/17 17:00 Pharmacy Profile Note 0 ml @ 0 mls/hr UNSCH OTHER 07/07/17 17:15 Cefepime HCl 1000 mg/Sodium Chloride 100 ml @ 200 mls/hr Q24H IV 07/07/17 18:00 07/08/17 17:37 (Morphine Inj) 2 mg Q3H PRN IV PUSH 07/07/17 18:00 07/07/17 18:59 Lactated Ringer's 1,000 ml @ 30 mls/hr Q24H PRN IV 07/07/17 23:45 07/10/17 23:44 (Betadine 5% Antisepsis Kit) 1 applic COMPLAINT SPECIALIST PRN EACH NARE 07/07/17 23:45 07/10/17 23:44 (Chlorhexidine 2% Cloth) 3 pack COMPLAINT SPECIALIST PRN TOPICAL 07/07/17 23:45 07/10/17 23:44 (NovoLIN R INJ) See Protocol Table ... COMPLAINT SPECIALIST PRN SQ 07/07/17 23:45 07/10/17 23:44 Vancomycin HCl 1000 mg/Sodium Chloride 250 ml @ 250 mls/hr Q12H IV 07/08/17 10:00 07/08/17 21:31 Miscellaneous Information SPECIFIC LAB TO BE DRAWN:VANCOMYCIN TROUGH DATE TO... ONCE ONCE .XX 07/09/17 21:45 07/09/17 21:46 (NS Flush) 2 ml UNSCH PRN IVF 07/08/17 10:45 (NS Flush) 2 ml BID IVF 07/08/17 21:00 07/08/17 21:30 (Lovenox Inj) 30 mg Q24H SQ 07/09/17 10:00 Cefazolin Sodium 1000 mg/Sodium Chloride 100 ml @ 200 mls/hr Q8H IV 07/08/17 13:00 07/09/17 05:29 07/08/17 21:30 (Oscal-D 250-125) 250 mg TID PO 07/08/17 13:00 07/08/17 17:33 (Benadryl) 25 mg Q6H PRN PO 07/08/17 10:45 (Slater 7.5-325 Mg) 1 tab Q3H PRN PO 07/08/17 10:45 (Vitamin D3) 5,000 units DAILY PO 07/09/17 09:00 Miscellaneous Information ALL NURSING DEPARTME... UNSCH PRN .XX 07/08/17 11:10 07/09/17 11:09 A/P Assessment and Plan 67-year-old female with a history of severe dementia presented with a fall Right femoral neck fracture -Secondary to mechanical fall. Found on chest x-ray. -Orthopedic surgery consulted by ED. -Will give supportive care with pain control pending recommendation from orthopedic surgeon. - 07/08 sp Right hip surgery. Pain control as per orthopedic surgery. SIRS -Patient has elevated WBC around 22,000 and heart rate 110. UA negative and chest x-ray negative. No infectious source. -Patient given Zosyn and vancomycin the ED. Will treat empirically for infection pending complete workup. Continue with vancomycin and start cefepime renally dose. We will have pharmacy dose vancomycin. 07/08 Blood cultures negative x1. WBC down to 18 K. Continue to monitor cbc w diff. UA negative, CXR without acute disease. No skin lesions. Continue IV Vancomycin and IV Cefepime. BIANCA -Unsure if this is acute renal failure versus chronic versus acute on chronic renal failure. There is no baseline. BUN is elevated will suggest dehydration. -Strict ins and outs. -Avoid nephrotoxins. -Continue to monitor creatinine. 07/08 Creatinine improving and trending down. Continue IV fluids. Severe dementia -Will resume home medication once medication is updated in the EMR system. Anemia -Hemoglobin went down after surgical procedure. Possible acute on chronic post op anemia. Hemoglobin went down from 10 to 7.7. PAtient asymptomatic. - Transfuse for hemoglobin <7 or symptomatic anemia. DVT prophylaxis -Anticipating surgery. SCDs. Chemoprophylaxis per orthopedic surgeon. Due to severe dementia which will affect her rehabilitation potential patient has a poor prognosis. Avery Tatum MD Jul 08, 2017 19:28
[2017-07-08 20:35] VITALS: BP 125/78; PULSE 92; RESP 20; TEMP 100; O2SAT 92
[2017-07-08] MEDS: SODIUM CHLORIDE 0.9% FLUSH 5 ML FLUSH IVF SCH (21:30)
[2017-07-09] VITALS (9 sets, daily range): BP systolic 99–125; BP diastolic 59–73; PULSE 85–100; RESP 18–21; TEMP 97.7–103; O2SAT 92–100
--- NOTE | 2017-07-09 06:30 | PD.ORT.PN ---
Subjective Subjective Remarks POD 1 s/p IMN right hip confused. no complaitns. Objective Vitals Vital Signs Date Time Temp Pulse Resp B/P (MAP) Pulse Ox O2 Delivery O2 Flow Rate FiO2 07/09/17 05:23 98.6 93 20 117/59 (78) 95 07/09/17 00:20 98.9 98 21 100/62 (75) 100 07/08/17 20:35 100.0 92 20 125/78 (94) 92 07/08/17 15:53 95.9 81 18 114/64 (81) 91 07/08/17 12:20 97.8 94 15 113/84 (94) 93 Nasal Cannula 3 07/08/17 12:00 85 17 107/74 (85) 93 Nasal Cannula 3 07/08/17 11:45 86 16 104/61 (75) 93 Nasal Cannula 3 07/08/17 11:30 85 15 124/62 (82) 95 Nasal Cannula 3 07/08/17 11:12 97.5 85 15 127/59 (81) 93 Simple Mask 6 07/08/17 07:39 97.8 96 18 97/67 (77) 91 I/O 07/08/17 07/08/17 07/08/17 07/09/17 07/09/17 07/09/17 07:00 15:00 23:00 07:00 15:00 23:00 Intake Total 1100 ml 85 ml 470 ml 100 ml Output Total 200 ml 375 ml 450 ml Balance 900 ml -290 ml 20 ml 100 ml Intake Oral 0 ml 10 ml 120 ml IV Total 1100 ml 75 ml 350 ml 100 ml Output Urine Total 200 ml 375 ml 450 ml # Bowel Movements 0 0 0 Result Diagram: 07/08/1762107/08/17621 Objective Remarks RLE: dressings clean and dry. intact. NVI Assessment & Plan Assessment and Plan 1) right Intertroch hip fx s/p IMN - POD 1 -WBAT -daily dressing changes -CM for rehab placement -xarelto x 14 days on DC -ortho cleared for DC to SNF when arrangements made -f/u with [facility] or [facility] in 2 weeks Rasheed Escobar Jul 09, 2017 06:30
[2017-07-09 06:51] LABS: AUTOMATED NEUTROPHIL # 10.5 TH/MM3 (1.8-7.7); BASOPHIL % 0.2 % (0.0-2.0); EOSINOPHIL % 0.1 % (0.0-4.0); LYMPH % 11.6 % (9.0-44.0); LYMPHOCYTE # 1.5 TH/MM3 (1.0-4.8); MEAN CELL VOLUME 91.3 FL (80.0-100.0); MEAN CORPUSCULAR HEMOGLOBIN 30.6 PG (27.0-34.0); MEAN CORPUSCULAR HGB CONC 33.5 % (32.0-36.0); MONO % 7.2 % (0.0-8.0); NEUT % 80.9 % (16.0-70.0); PLATELET COUNT 160 TH/MM3 (150-450); RED BLOOD COUNT 2.04 MIL/MM3 (4.00-5.30)
[2017-07-09 07:04] LABS: HEMO FLAGS DIFF FINAL
[2017-07-09 07:08] LABS: HEMATOCRIT 18.7 % (35.0-46.0)
[2017-07-09 07:20] LABS: ANION GAP 6 MEQ/L (5-15); AST (GOT) 27 U/L (15-37); BICARBONATE 25.3 MEQ/L (21.0-32.0); BLOOD UREA NITROGEN 14 MG/DL (7-18); CHLORIDE 116 MEQ/L (98-107); GLOMERULAR FILTRATION RATE 102 ML/MIN (>89); MAGNESIUM 2.1 MG/DL (1.5-2.5); POTASSIUM 3.5 MEQ/L (3.5-5.1); SODIUM (NA) 147 MEQ/L (136-145)
[2017-07-09 07:22] LABS: ALKALINE PHOSPHATASE 61 U/L (45-117); ALT (GPT) 18 U/L (10-53); TOTAL BILIRUBIN ADULT 0.4 MG/DL (0.2-1.0)
[2017-07-09] MEDS: SODIUM CHLORIDE 0.9% FLUSH 5 ML FLUSH IVF SCH ×2 (09:00→21:06)
[2017-07-09] MEDS: CHOLECALCIFEROL (VIT D3) 5000 UNIT CAP PO SCH (09:02)
[2017-07-09] MEDS: CALCIUM/VITAMIN D 250 MG/125 U TAB PO SCH ×3 (09:02→17:08)
[2017-07-09] MEDS: DOCUSATE SODIUM 50 MG/SENNA 8.6 MG TAB PO SCH ×2 (09:02→21:06)
[2017-07-09] MEDS: SODIUM CHLOR 0.9% 1000 ML INJ 1,000 ML IV SCH (09:03)
[2017-07-09] MEDS: VANCOMYCIN 1,000 MG/NS 250 ML IV SCH ×2 (09:10)
[2017-07-09] MEDS: ENOXAPARIN SODIUM 30 MG/0.3 ML SYRINGE SQ SCH (09:10)
[2017-07-09] MEDS: D5-1/2 NS + KCL 20 MEQ INJ 1,000 ML IV SCH ×2 (10:42→21:40)
[2017-07-09] MEDS ORDERED: POTASSIUM PHOSPHATE INJ 15 MMOL in SODIUM CHLORIDE 0.9% INJ 150 ML IV ONE (11:00)
--- NOTE | 2017-07-09 15:26 | HHI.PR ---
Subjective Remarks Patient seen this morning around 11 AM. Not communicative, which is apparently baseline per her . She does appear to deny pain however Objective Vital Signs Date Time Temp Pulse Resp B/P (MAP) Pulse Ox O2 Delivery O2 Flow Rate FiO2 07/09/17 12:35 99.5 92 18 103/66 93 07/09/17 12:20 99.1 100 18 111/66 92 07/09/17 11:58 99.1 100 18 111/66 (81) 92 07/09/17 08:51 99.6 85 18 99/64 (76) 93 07/09/17 05:23 98.6 93 20 117/59 (78) 95 07/09/17 00:20 98.9 98 21 100/62 (75) 100 07/08/17 20:35 100.0 92 20 125/78 (94) 92 07/08/17 15:53 95.9 81 18 114/64 (81) 91 I/O 07/08/17 07/08/17 07/08/17 07/09/17 07/09/17 07/09/17 07:00 15:00 23:00 07:00 15:00 23:00 Intake Total 1100 ml 85 ml 470 ml 200 ml Output Total 200 ml 375 ml 450 ml 250 ml Balance 900 ml -290 ml 20 ml -50 ml Intake Oral 0 ml 10 ml 120 ml 100 ml IV Total 1100 ml 75 ml 350 ml 100 ml Output Urine Total 200 ml 375 ml 450 ml 250 ml # Bowel Movements 0 0 0 0 Result Diagram: 07/09/17 0636 07/09/17 0631 Objective Remarks GENERAL: sitting up in bed. Appears comfortable. Disoriented. Makes good eye contact. Obeys commands. SKIN: Warm and dry. HEAD: Normocephalic. EYES: No scleral icterus. No injection or drainage. NECK: Supple, trachea midline. No JVD. CARDIOVASCULAR: Regular rate and rhythm without murmurs, gallops, or rubs. RESPIRATORY: Breath sounds equal bilaterally. No accessory muscle use. GASTROINTESTINAL: Abdomen soft, non-tender, nondistended. MUSCULOSKELETAL: No cyanosis, or edema. post operative hip not examined. Peripheral perfusion intact. BACK: Nontender without obvious deformity. No CVA tenderness. A/P Assessment and Plan 67-year-old female with a history of severe dementia presented with a fall //Right femoral neck fracture -Secondary to mechanical fall. Found on chest x-ray. -Orthopedic surgery consulted by ED. -Will give supportive care with pain control pending recommendation from orthopedic surgeon. - 07/08 sp Right hip surgery. Pain control as per orthopedic surgery. //SIRS -Patient has elevated WBC around 22,000 and heart rate 110. UA negative and chest x-ray negative. No infectious source. -Patient given Zosyn and vancomycin the ED. Will treat empirically for infection pending complete workup. Continue with vancomycin and start cefepime renally dose. We will have pharmacy dose vancomycin. 07/08 Blood cultures negative x1. WBC down to 18 K. Continue to monitor cbc w diff. UA negative, CXR without acute disease. No skin lesions. Continue IV Vancomycin and IV Cefepime. = 07/09. Cytosis on admission likely secondary to stress. Leukocytosis down to 13 today. No signs of infection. Discontinue antibiotics. //BIANCA -Unsure if this is acute renal failure versus chronic versus acute on chronic renal failure. There is no baseline. BUN is elevated will suggest dehydration. -Strict ins and outs. -Avoid nephrotoxins. -Continue to monitor creatinine. 07/08 Creatinine improving and trending down. Continue IV fluids. = 07/09. Creatinine 0.59. Resolved. //Hypernatremia. Sodium 147. Switch fluids to one half normal saline. //Severe dementia //Depression -Will resume home medication once medication is updated in the EMR system. = 07/09. We'll add namzaric from home meds. Had escitalopram, lamotrigine. //Anemia -Hemoglobin went down after surgical procedure. Possible acute on chronic post op anemia. Hemoglobin went down from 10 to 7.7. PAtient asymptomatic. - Transfuse for hemoglobin <7 or symptomatic anemia. = Hemoglobin 6.2 from 7.7 yesterday. Likely operative blood loss. Transfused 2 units as per orthopedics. //DVT prophylaxis -Anticipating surgery. SCDs. Chemoprophylaxis per orthopedic surgeon. Due to severe dementia which will affect her rehabilitation potential patient has a poor prognosis. Alek Solorio MD Jul 09, 2017 15:26
[2017-07-09] MEDS ORDERED: PHARMACY ORDERED LAB ONE (21:45)
[2017-07-10] VITALS (8 sets, daily range): BP systolic 129–170; BP diastolic 63–96; PULSE 87–105; RESP 16–21; TEMP 95.7–99.8; O2SAT 95–96
[2017-07-10 05:06] LABS: BICARBONATE 27.4 MEQ/L (21.0-32.0); MAGNESIUM 1.9 MG/DL (1.5-2.5); POTASSIUM 3.4 MEQ/L (3.5-5.1)
[2017-07-10 05:17] LABS: AUTOMATED NEUTROPHIL # 7.9 TH/MM3 (1.8-7.7); BASOPHIL % 0.4 % (0.0-2.0); EOSINOPHIL # 0.1 TH/MM3 (0-0.4); EOSINOPHIL % 0.7 % (0.0-4.0); HEMATOCRIT 25.8 % (35.0-46.0); HEMO FLAGS DIFF FINAL; LYMPH % 16.5 % (9.0-44.0); LYMPHOCYTE # 1.8 TH/MM3 (1.0-4.8); MEAN CELL VOLUME 88.3 FL (80.0-100.0); MEAN CORPUSCULAR HEMOGLOBIN 30.6 PG (27.0-34.0); MEAN CORPUSCULAR HGB CONC 34.7 % (32.0-36.0); MONO % 9.2 % (0.0-8.0); NEUT % 73.2 % (16.0-70.0); PLATELET COUNT 155 TH/MM3 (150-450); RED BLOOD COUNT 2.93 MIL/MM3 (4.00-5.30); RED CELL DISTRIBUTION WIDTH 13.6 % (11.6-17.2); WHITE BLOOD COUNT 10.8 TH/MM3 (4.0-11.0)
[2017-07-10] MEDS ORDERED: DONEPEZIL PO SCH (09:00)
[2017-07-10] MEDS ORDERED: MEMANTINE PO SCH (09:00)
[2017-07-10] MEDS: ESCITALOPRAM OXALATE 20 MG TAB PO SCH (09:25)
[2017-07-10] MEDS: lamoTRIgine 25 MG TAB PO SCH (09:25)
[2017-07-10] MEDS: DOCUSATE SODIUM 50 MG/SENNA 8.6 MG TAB PO SCH ×2 (09:25→19:47)
[2017-07-10] MEDS: ACETAMINOPHEN/HYDROcodone 325 MG/7.5 MG TAB PO PRN ×3 (09:25→19:46)
[2017-07-10] MEDS: CHOLECALCIFEROL (VIT D3) 5000 UNIT CAP PO SCH (09:33)
[2017-07-10] MEDS: ENOXAPARIN SODIUM 30 MG/0.3 ML SYRINGE SQ SCH (09:33)
[2017-07-10] MEDS: CALCIUM/VITAMIN D 250 MG/125 U TAB PO SCH ×4 (09:33→19:46)
[2017-07-10] MEDS: SODIUM CHLORIDE 0.9% FLUSH 5 ML FLUSH IVF SCH ×2 (09:33→19:47)
[2017-07-10] MEDS: D5-1/2 NS + KCL 20 MEQ INJ 1,000 ML IV SCH ×2 (09:35→21:05)
--- NOTE | 2017-07-10 13:20 | HHI.PR ---
Subjective Remarks No current complaints at this time Her son is sitting at bedside Seen with RN in attendance Not cleared by orthopedic surgeon for discharge at this time Objective Vitals Vital Signs Date Time Temp Pulse Resp B/P (MAP) Pulse Ox O2 Delivery O2 Flow Rate FiO2 07/10/17 08:00 99.6 93 19 170/96 (120) 95 07/10/17 04:14 99.2 87 16 135/76 (95) 96 07/10/17 00:35 99.5 90 16 130/63 (85) 95 07/09/17 16:20 98.8 98 18 106/73 (84) 95 07/09/17 16:20 98.8 98 18 106/73 95 07/09/17 16:05 97.7 96 18 125/62 95 07/09/17 15:28 97.7 96 18 125/62 95 I/O 07/09/17 07/09/17 07/09/17 07/10/17 07/10/17 07/10/17 07:00 15:00 23:00 07:00 15:00 23:00 Intake Total 200 ml 240 ml 810 ml 0 ml Output Total 250 ml Balance -50 ml 240 ml 810 ml 0 ml Intake Oral 100 ml 240 ml 0 ml 0 ml IV Total 100 ml Packed Cells 800 ml Blood Product IV Normal Saline Flush 10 ml Output Urine Total 250 ml # Voids 2 1 5 # Bowel Movements 0 0 0 0 Result Diagram: 07/10/17 0426 07/10/17 0426 Other Results Laboratory Tests Test 07/07/17 14:45 07/07/17 16:35 07/08/17 06:22 07/09/17 06:31 White Blood Count 22.9 TH/MM3 18.4 TH/MM3 Red Blood Count 3.66 MIL/MM3 2.53 MIL/MM3 Hemoglobin 10.9 GM/DL 7.7 GM/DL Hematocrit 33.3 % 23.2 % Mean Corpuscular Volume 91.1 FL 91.5 FL Mean Corpuscular Hemoglobin 29.9 PG 30.3 PG Mean Corpuscular Hemoglobin Concent 32.8 % 33.1 % Red Cell Distribution Width 13.2 % 13.1 % Platelet Count 310 TH/MM3 210 TH/MM3 Mean Platelet Volume 8.8 FL 8.7 FL Neutrophils (%) (Auto) 87.2 % Lymphocytes (%) (Auto) 6.2 % Monocytes (%) (Auto) 6.4 % Eosinophils (%) (Auto) 0.0 % Basophils (%) (Auto) 0.2 % Neutrophils # (Auto) 19.9 TH/MM3 Lymphocytes # (Auto) 1.4 TH/MM3 Monocytes # (Auto) 1.5 TH/MM3 Eosinophils # (Auto) 0.0 TH/MM3 Basophils # (Auto) 0.0 TH/MM3 CBC Comment DIFF FINAL Differential Comment Prothrombin Time 11.5 SEC Prothromb Time International Ratio 1.0 RATIO Blood Urea Nitrogen 22 MG/DL 26 MG/DL 14 MG/DL Creatinine 2.03 MG/DL 1.01 MG/DL 0.59 MG/DL Random Glucose 175 MG/DL 114 MG/DL 99 MG/DL Total Protein 6.7 GM/DL 5.0 GM/DL Albumin 3.4 GM/DL 2.3 GM/DL Calcium Level 8.2 MG/DL 7.7 MG/DL 7.5 MG/DL Alkaline Phosphatase 90 U/L 61 U/L Aspartate Amino Transf (AST/SGOT) 19 U/L 27 U/L Alanine Aminotransferase (ALT/SGPT) 24 U/L 18 U/L Total Bilirubin 0.5 MG/DL 0.4 MG/DL Sodium Level 143 MEQ/L 149 MEQ/L 147 MEQ/L Potassium Level 4.3 MEQ/L 4.0 MEQ/L 3.5 MEQ/L Chloride Level 109 MEQ/L 116 MEQ/L 116 MEQ/L Carbon Dioxide Level 27.5 MEQ/L 26.8 MEQ/L 25.3 MEQ/L Anion Gap 7 MEQ/L 6 MEQ/L 6 MEQ/L Estimat Glomerular Filtration Rate 21 ML/MIN 47 ML/MIN 102 ML/MIN Total Creatine Kinase 214 U/L Creatine Kinase MB 2.4 NG/ML Creatine Kinase MB % 1.1 % Troponin I 0.04 NG/ML Urine Color YELLOW Urine Turbidity CLEAR Urine pH 6.5 Urine Specific [place] 1.018 Urine Protein 30 mg/dL Urine Glucose (UA) NEG mg/dL Urine Ketones 10 mg/dL Urine Occult Blood NEG Urine Nitrite NEG Urine Bilirubin NEG Urine Urobilinogen 2.0 MG/DL Urine Leukocyte Esterase NEG Urine RBC 6 /hpf Urine WBC 1 /hpf Urine Hyaline Casts 4 /lpf Urine Mucus FEW /lpf Microscopic Urinalysis Comment CATH-CULT NOT IND Lactic Acid Level 1.6 mmol/L 25-Hydroxy Vitamin D Total 15.0 ng/ML Random Vancomycin Level 7.0 COMMENT Phosphorus Level 1.4 MG/DL Magnesium Level 2.1 MG/DL Test 07/09/17 06:36 07/10/17 04:26 White Blood Count 13.0 TH/MM3 10.8 TH/MM3 Red Blood Count 2.04 MIL/MM3 2.93 MIL/MM3 Hemoglobin 6.2 GM/DL 9.0 GM/DL Hematocrit 18.7 % 25.8 % Mean Corpuscular Volume 91.3 FL 88.3 FL Mean Corpuscular Hemoglobin 30.6 PG 30.6 PG Mean Corpuscular Hemoglobin Concent 33.5 % 34.7 % Red Cell Distribution Width 13.0 % 13.6 % Platelet Count 160 TH/MM3 155 TH/MM3 Mean Platelet Volume 8.4 FL 8.6 FL Neutrophils (%) (Auto) 80.9 % 73.2 % Lymphocytes (%) (Auto) 11.6 % 16.5 % Monocytes (%) (Auto) 7.2 % 9.2 % Eosinophils (%) (Auto) 0.1 % 0.7 % Basophils (%) (Auto) 0.2 % 0.4 % Neutrophils # (Auto) 10.5 TH/MM3 7.9 TH/MM3 Lymphocytes # (Auto) 1.5 TH/MM3 1.8 TH/MM3 Monocytes # (Auto) 0.9 TH/MM3 1.0 TH/MM3 Eosinophils # (Auto) 0.0 TH/MM3 0.1 TH/MM3 Basophils # (Auto) 0.0 TH/MM3 0.0 TH/MM3 CBC Comment DIFF FINAL DIFF FINAL Differential Comment Blood Urea Nitrogen 12 MG/DL Creatinine 0.40 MG/DL Random Glucose 100 MG/DL Albumin 2.3 GM/DL Calcium Level 7.6 MG/DL Phosphorus Level 1.5 MG/DL Magnesium Level 1.9 MG/DL Sodium Level 144 MEQ/L Potassium Level 3.4 MEQ/L Chloride Level 111 MEQ/L Carbon Dioxide Level 27.4 MEQ/L Anion Gap 6 MEQ/L Estimat Glomerular Filtration Rate 159 ML/MIN Imaging Last Impressions Hip X-Ray 07/08/17 0000 Signed Impressions: Service Date/Time: June 10:41 - CONCLUSION: Fluoroscopic images during placement of dynamic compression pin in right hip. Bar F. Tocci, MD Knee X-Ray 07/07/17 0000 Signed Impressions: Service Date/Time: Friday, July 07, 2017 15:03 - CONCLUSION: Mild osteoporosis without fracture. Soft tissue swelling. Bar Horne MD Hip and Pelvis X-Ray 07/07/17 0000 Signed Impressions: Service Date/Time: Friday, July 07, 2017 15:03 - CONCLUSION: Displaced right femoral neck fracture. Bar Horne MD Chest X-Ray 07/07/17 0000 Signed Impressions: Service Date/Time: Friday, July 07, 2017 16:30 - CONCLUSION: No acute cardiopulmonary abnormality is identified. Roel King MD Objective Remarks GENERAL: Awake and alert and confused SKIN: Warm and dry. HEAD: Atraumatic. Normocephalic. EYES: Pupils equal and round. No scleral icterus. No injection or drainage. ENT: No nasal bleeding or discharge. Mucous membranes pink and moist. Tongue is midline NECK: Trachea midline. No JVD. Neck is supple CARDIOVASCULAR: Regular rate and rhythm. S1-S2 no S3 or S4 RESPIRATORY: No accessory muscle use. Clear to auscultation. Breath sounds equal bilaterally. GASTROINTESTINAL: Abdomen soft, non-tender, nondistended. Hepatic and splenic margins not palpable. MUSCULOSKELETAL: Extremities without clubbing, cyanosis, or edema. No obvious deformities. NEUROLOGICAL: Awake and alert. No obvious cranial nerve deficits. Motor grossly within normal limits. Five out of 5 muscle strength in the arms and legs. Normal speech. PSYCHIATRIC: INAppropriate mood and affect; insight and judgment ABnormal. Appears to be at baseline per family Procedures cc: Willy Bowden MD Operative Report Date of Surgery: Jul 08, 2017 Preoperative Diagnosis: Right hip intertrochanteric fracture Postoperative Diagnosis: Procedure: Right hip reduction and intramedullary nail fixation Anesthesia: Gen. Surgeon: Medications and IVs Current Medications IV Flush (NS Flush) 2 ml UNSCH PRN IV FLUSH FLUSH AFTER USING IV ACCESS; Start 07/07/17 at 14:30; Stop 07/07/17 at 17:07; Status DC Sodium Chloride 1,000 ml @ 1,000 mls/hr Q1H IV Last administered on 07/07/17 14:47; Start 07/07/17 at 14:20; Stop 07/07/17 at 15:19; Status DC Morphine Sulfate (Morphine Inj) 4 mg ONCE ONCE IV PUSH Last administered on 14:47; Start 07/07/17 at 14:30; Stop 07/07/17 at 14:31; Status DC Sodium Chloride 1,000 ml @ 999 mls/hr BOLUS ONCE IV Last administered on 07/07 16:53; Start 07/07/17 at 16:15; Stop 07/07/17 at 17:15; Status DC Piperacillin Sod/ Tazobactam Sod 100 ml @ 200 mls/hr ONCE ONCE IV Last administered on 07/07/17 16:53; Start 07/07/17 at 16:15; Stop 07/07/17 at 16:44 ; Status DC Vancomycin HCl 1000 mg/Sodium Chloride 250 ml @ 250 mls/hr ONCE ONCE IV Last administered on 07/07/17 16:53; Start 07/07/17 at 16:15; Stop 07/07/17 at 17:14 ; Status DC Sodium Chloride 1,000 ml @ 100 mls/hr Q10H IV Last administered on 07/09/17 09:03; Start 07/07/17 at 17:00; Stop 07/09/17 at 09:46; Status DC Sodium Chloride (NS Flush) 2 ml UNSCH PRN IV FLUSH FLUSH AFTER USING IV ACCESS ; Start 07/07/17 at 17:00; Stop 07/08/17 at 12:13; Status DC Sodium Chloride (NS Flush) 2 ml BID IV FLUSH Last administered on 07/07/17 21: 00; Start 07/07/17 at 21:00; Stop 07/08/17 at 12:13; Status DC Acetaminophen (Tylenol) 650 mg Q4H PRN PO TEMP > 100.4; Start 07/07/17 at 17:00 Ondansetron HCl (Zofran Inj) 4 mg Q6H PRN IVP NAUSEA OR VOMITING; Start at 17:00 Naloxone HCl (Narcan Inj) 0.4 mg UNSCH PRN IV PUSH SEE LABEL COMMENTS; Start at 17:00 Senna/Docusate Sodium (Renuka-Colace) 1 tab BID PO Last administered on 09:25; Start 07/07/17 at 21:00 Magnesium Hydroxide (Milk Of Magnesia Liq) 30 ml Q12H PRN PO MILD - MODERATE CONSTIPATION; Start 07/07/17 at 17:00 Sennosides (Senokot) 17.2 mg Q12H PRN PO MODERATE - SEVERE CONSTIPATION; Start 07/07/17 at 17:00 Bisacodyl (Dulcolax Supp) 10 mg DAILY PRN RECTAL SEVERE CONSITIPATION; Start at 17:00 Lactulose (Lactulose Liq) 30 ml DAILY PRN PO SEVERE CONSITIPATION; Start at 17:00 Pharmacy Profile Note 0 ml @ 0 mls/hr UNSCH OTHER ; Start 07/07/17 at 17:15; Stop 07/09/17 at 15:25; Status DC Cefepime HCl 1000 mg/Sodium Chloride 100 ml @ 200 mls/hr Q24H IV Last administered on 07/08/17 17:37; Start 07/07/17 at 18:00; Stop 07/09/17 at 15:25 ; Status DC Morphine Sulfate (Morphine Inj) 2 mg Q3H PRN IV PUSH pain 4-10 Last administered on 07/07/17 18:59; Start 07/07/17 at 18:00 Lactated Ringer's 1,000 ml @ 30 mls/hr Q24H PRN IV SEE LABEL COMMENTS; Start at 23:45; Stop 07/10/17 at 23:44 Povidone Iodine (Betadine 5% Antisepsis Kit) 1 applic TECHNICAL SERVICE SPECIALIST PRN EACH NARE SEE LABEL COMMENTS; Start 07/07/17 at 23:45; Stop 07/10/17 at 23:44 Chlorhexidine Gluconate (Chlorhexidine 2% Cloth) 3 pack TECHNICAL SERVICE SPECIALIST PRN TOPICAL SEE LABEL COMMENTS; Start 07/07/17 at 23:45; Stop 07/10/17 at 23:44 Insulin Human Regular (NovoLIN R INJ) See Protocol Table ... TECHNICAL SERVICE SPECIALIST PRN SQ SEE PROTOCOL TABLE; Start 07/07/17 at 23:45; Stop 07/10/17 at 23:44 Vancomycin HCl 1000 mg/Sodium Chloride 250 ml @ 250 mls/hr Q12H IV Last administered on 07/09/17 09:10; Start 07/08/17 at 10:00; Stop 07/09/17 at 15:25 ; Status DC Miscellaneous Information SPECIFIC LAB TO BE DRAWN:VANCOMYCIN TROUGH DATE TO... ONCE ONCE .XX ; Start 07/09/17 at 21:45; Stop 07/09/17 at 21:46; Status Cancel Vancomycin HCl (Vancomycin Inj) 1,000 mg STK-MED ONCE .ROUTE Last administered on 07/08/17 10:15; Start 07/08/17 at 09:32; Stop 07/08/17 at 09:33; Status DC Bupivacaine HCl/ Epinephrine Bitart (Sensorcaine-Epinephrine Pf 0.5% Inj) 10 ml STK-MED ONCE .ROUTE Last administered on 07/08/17 10:29; Start 07/08/17 at 09: 32; Stop 07/08/17 at 09:33; Status DC Gentamicin Sulfate (Gentamicin Inj) 240 mg STK-MED ONCE .ROUTE Last administered on 07/08/17 10:29; Start 07/08/17 at 09:32; Stop 07/08/17 at 09:33 ; Status DC Sodium Chloride 250 ml @ As Directed STK-MED ONCE .ROUTE Last administered on 07/08/17 10:15; Start 07/08/17 at 09:32; Stop 07/08/17 at 09:33; Status DC Ketamine HCl (Ketalar Inj) 500 mg STK-MED ONCE .ROUTE ; Start 07/08/17 at 10:04 ; Stop 07/08/17 at 10:05; Status DC Sugammadex Sodium (Bridion Inj) 200 mg STK-MED ONCE IV PUSH ; Start 07/08/17 at 10:44; Stop 07/08/17 at 10:45; Status DC IV Flush (NS Flush) 2 ml UNSCH PRN IVF FLUSH AFTER USING IV ACCESS; Start 07/08 at 10:45 IV Flush (NS Flush) 2 ml BID IVF Last administered on 07/10/17 09:33; Start at 21:00 Enoxaparin Sodium (Lovenox Inj) 30 mg Q24H SQ Last administered on 07/10/17 09 :33; Start 07/09/17 at 10:00 Cefazolin Sodium 1000 mg/Sodium Chloride 100 ml @ 200 mls/hr Q8H IV Last administered on 07/09/17 04:57; Start 07/08/17 at 13:00; Stop 07/09/17 at 05:29 ; Status DC Calcium/Vitamin D (Oscal-D 250-125) 250 mg TID PO Last administered on 09:33; Start 07/08/17 at 13:00 Diphenhydramine HCl (Benadryl) 25 mg Q6H PRN PO ITCHING; Start 07/08/17 at 10: 45 Acetaminophen/ Hydrocodone Bitart ([place] 7.5-325 Mg) 1 tab Q3H PRN PO pain 3< 10 Last administered on 07/10/17 09:25; Start 07/08/17 at 10:45 Cholecalciferol (Vitamin D3) 5,000 units DAILY PO Last administered on 09:33; Start 07/09/17 at 09:00 Ergocalciferol (Drisdol) 50,000 units ONCE ONCE PO ; Start 07/08/17 at 12:30; Stop 07/08/17 at 12:31; Status DC Albuterol Sulfate (*ALBUTEROL NEB PERIprocedure ONLY) 2.5 mg STK-MED ONCE NEB Last administered on 07/08/17 11:25; Start 07/08/17 at 11:25; Stop 07/08/17 at 11:26; Status DC Miscellaneous Information ALL NURSING DEPARTME... UNSCH PRN .XX SEE LABEL COMMENTS; Start 07/08/17 at 11:10; Stop 07/09/17 at 11:09; Status DC Potassium Phosphate 15 mmol/ Sodium Chloride 155 ml @ 38.75 mls/ hr ONCE ONCE IV Last administered on 07/09/17 10:41; Start 07/09/17 at 11:00; Stop at 14:59; Status DC Potassium Chloride/Dextrose/ Sod Cl 1,000 ml @ 84 mls/hr [id number] IV Last administered on 07/09/17 10:42; Start 07/09/17 at 09:45 Escitalopram Oxalate (Lexapro) 20 mg DAILY PO Last administered on 07/10/17 09 :25; Start 07/10/17 at 09:00 Lamotrigine (LaMICtal) 25 mg DAILY PO Last administered on 07/10/17 09:25; Start 07/10/17 at 09:00 Patient Own Medication namzaric 28,/10 daily* DAILY PO ; Start 07/10/17 at 09:00 ; Status Future Hold A/P Problem List: (1) Femoral neck fracture ICD Code: S72.009A - Fracture of unspecified part of neck of unspecified femur , initial encounter for closed fracture Status: Acute (2) Sepsis ICD Code: A41.9 - Sepsis, unspecified organism Status: Acute (3) Renal insufficiency ICD Code: N28.9 - Disorder of kidney and ureter, unspecified Status: Acute (4) Dementia ICD Code: F03.90 - Unspecified dementia without behavioral disturbance Status: Acute Assessment and Plan 67-year-old female with a history of severe dementia presented with a fall Right femoral neck fracture -Secondary to mechanical fall. Found on chest x-ray. -Orthopedic surgery consulted by ED. -Will give supportive care with pain control pending recommendation from orthopedic surgeon. - 07/08 sp Right hip surgery. Pain control as per orthopedic surgery. SIRS -Patient has elevated WBC around 22,000 and heart rate 110. UA negative and chest x-ray negative. No infectious source. -Patient given Zosyn and vancomycin the ED. Will treat empirically for infection pending complete workup. Continue with vancomycin and start cefepime renally dose. We will have pharmacy dose vancomycin. 07/08 Blood cultures negative x1. WBC down to 18 K. Continue to monitor cbc w diff. UA negative, CXR without acute disease. No skin lesions. Continue IV Vancomycin and IV Cefepime. BIANCA -Unsure if this is acute renal failure versus chronic versus acute on chronic renal failure. There is no baseline. BUN is elevated will suggest dehydration. -Strict ins and outs. -Avoid nephrotoxins. -Continue to monitor creatinine. 07/08 Creatinine improving and trending down. Continue IV fluids. Severe dementia -Will resume home medication once medication is updated in the EMR system. Anemia -Hemoglobin went down after surgical procedure. Possible acute on chronic post op anemia. Hemoglobin went down from 10 to 7.7. PAtient asymptomatic. - Transfuse for hemoglobin <7 or symptomatic anemia. DVT prophylaxis -Anticipating surgery. SCDs. Chemoprophylaxis per orthopedic surgeon. Hypokalemia Will replace Due to severe dementia which will affect her rehabilitation potential patient has a poor prognosis. A.m. labs Problem Qualifiers (1) Femoral neck fracture: Qualified Codes: S72.001A - Fracture of unspecified part of neck of right femur , initial encounter for closed fracture (2) Sepsis: Qualified Codes: A41.9 - Sepsis, unspecified organism (3) Dementia: Qualified Codes: F03.91 - Unspecified dementia with behavioral disturbance Jeremy Hernández DO Jul 10, 2017 13:19
[2017-07-10] MEDS: MAGNESIUM SULFATE 1 GM PREMIX 100 ML IV SCH ×2 (13:57→16:40)
[2017-07-10] MEDS ORDERED: SODIUM PHOSPHATE INJ 30 MMOL in SODIUM CHLOR 0.9% 250 ML INJ 250 ML IV ONE (14:00)
[2017-07-10] MEDS: POTASSIUM BICARBONATE 25 MEQ EFFERVESCENT TAB PO SCH (15:25)
[2017-07-11 00:17] VITALS: BP 154/75; PULSE 109; RESP 16; TEMP 99.3; O2SAT 95
[2017-07-11 01:47] LABS: AUTOMATED NEUTROPHIL # 8.8 TH/MM3 (1.8-7.7); BASOPHIL # 0.1 TH/MM3 (0-0.2); BASOPHIL % 0.8 % (0.0-2.0); EOSINOPHIL # 0.1 TH/MM3 (0-0.4); HEMATOCRIT 27.7 % (35.0-46.0); LYMPH % 13.2 % (9.0-44.0); LYMPHOCYTE # 1.5 TH/MM3 (1.0-4.8); MEAN CELL VOLUME 88.1 FL (80.0-100.0); MEAN CORPUSCULAR HEMOGLOBIN 30.7 PG (27.0-34.0); MEAN CORPUSCULAR HGB CONC 34.8 % (32.0-36.0); MONO % 8.6 % (0.0-8.0); NEUT % 76.4 % (16.0-70.0); PLATELET COUNT 192 TH/MM3 (150-450); RED BLOOD COUNT 3.15 MIL/MM3 (4.00-5.30); RED CELL DISTRIBUTION WIDTH 13.6 % (11.6-17.2); WHITE BLOOD COUNT 11.5 TH/MM3 (4.0-11.0)
[2017-07-11 01:50] LABS: HEMO FLAGS AUTO DIFF
[2017-07-11 01:53] LABS: ANION GAP 4 MEQ/L (5-15); AST (GOT) 41 U/L (15-37); BICARBONATE 29.3 MEQ/L (21.0-32.0); BLOOD UREA NITROGEN 9 MG/DL (7-18); CHLORIDE 108 MEQ/L (98-107); GLOMERULAR FILTRATION RATE 132 ML/MIN (>89); MAGNESIUM 2.2 MG/DL (1.5-2.5); POTASSIUM 3.7 MEQ/L (3.5-5.1); SODIUM (NA) 141 MEQ/L (136-145)
[2017-07-11 02:01] LABS: ALKALINE PHOSPHATASE 72 U/L (45-117); ALT (GPT) 29 U/L (10-53); FREE T4 1.27 NG/DL (0.76-1.46); TOTAL BILIRUBIN ADULT 0.9 MG/DL (0.2-1.0)
[2017-07-11 03:04] LABS: PLATELET ESTIMATE SMEAR NORMAL (NORMAL); PLATELET MORPHOLOGY NORMAL (NORMAL); SCAN/DIFF AUTO DIFF CONFIRMED
[2017-07-11 04:11] VITALS: BP 169/89; PULSE 98; RESP 16; TEMP 99.2; O2SAT 95
[2017-07-11 08:00] VITALS: BP 136/88; PULSE 80; RESP 17; TEMP 99.5; O2SAT 96
[2017-07-11] MEDS: POTASSIUM BICARBONATE 25 MEQ EFFERVESCENT TAB PO SCH (08:32)
[2017-07-11] MEDS: CHOLECALCIFEROL (VIT D3) 5000 UNIT CAP PO SCH (08:33)
[2017-07-11] MEDS: ESCITALOPRAM OXALATE 20 MG TAB PO SCH (08:33)
[2017-07-11] MEDS: lamoTRIgine 25 MG TAB PO SCH (08:33)
[2017-07-11] MEDS: ACETAMINOPHEN/HYDROcodone 325 MG/7.5 MG TAB PO PRN ×2 (08:33→16:14)
[2017-07-11] MEDS: DOCUSATE SODIUM 50 MG/SENNA 8.6 MG TAB PO SCH (08:33)
[2017-07-11] MEDS: SODIUM CHLORIDE 0.9% FLUSH 5 ML FLUSH IVF SCH (08:34)
[2017-07-11] MEDS: D5-1/2 NS + KCL 20 MEQ INJ 1,000 ML IV SCH (08:40)
[2017-07-11] MEDS: ENOXAPARIN SODIUM 30 MG/0.3 ML SYRINGE SQ SCH (09:37)
[2017-07-11 11:04] LABS: HEMOGLOBIN A1a 0.9 %; HEMOGLOBIN A1b 1.5 %; HEMOGLOBIN LA1C 1.9 %; HEMOGLOBIN P3 3.5 %
--- NOTE | 2017-07-11 11:51 | HHI.PR ---
Subjective Remarks No current complaints at this time Her son is sitting at bedside Seen with RN in attendance Not cleared by orthopedic surgeon for discharge at this time -24 HAS BEEN CLEARED BY ORTHO FOR DC AWAIT SNF PLACEMENT NEEDS APPROVAL BY [facility] DC TO SNF WHEN BE AVAILABLE Objective Vitals Vital Signs Date Time Temp Pulse Resp B/P (MAP) Pulse Ox O2 Delivery O2 Flow Rate FiO2 07/11/17 08:00 99.5 80 17 136/88 (104) 96 07/11/17 04:11 99.2 98 16 169/89 (115) 95 07/11/17 00:17 99.3 109 16 154/75 (101) 95 07/10/17 23:37 105 07/10/17 20:36 99.8 99 16 142/86 (104) 95 07/10/17 16:00 96.0 88 18 130/85 (100) 95 07/10/17 15:20 88 07/10/17 12:00 95.7 100 21 129/81 (97) 95 I/O 07/10/17 07/10/17 07/10/17 07/11/17 07/11/17 07/11/17 07:00 15:00 23:00 07:00 15:00 23:00 Intake Total 0 ml 240 ml 0 ml Balance 0 ml 240 ml 0 ml Intake Oral 0 ml 240 ml 0 ml # Voids 5 1 3 5 # Bowel Movements 0 1 0 0 Result Diagram: 07/11/17 0113 07/11/17 0113 Other Results Laboratory Tests Test 07/09/17 06:31 07/09/17 06:36 07/10/17 04:26 07/11/17 01:13 Blood Urea Nitrogen 14 MG/DL 12 MG/DL 9 MG/DL Creatinine 0.59 MG/DL 0.40 MG/DL 0.47 MG/DL Random Glucose 99 MG/DL 100 MG/DL 109 MG/DL Total Protein 5.0 GM/DL 5.2 GM/DL Albumin 2.3 GM/DL 2.3 GM/DL 2.3 GM/DL Calcium Level 7.5 MG/DL 7.6 MG/DL 7.5 MG/DL Phosphorus Level 1.4 MG/DL 1.5 MG/DL 2.0 MG/DL Magnesium Level 2.1 MG/DL 1.9 MG/DL 2.2 MG/DL Alkaline Phosphatase 61 U/L 72 U/L Aspartate Amino Transf (AST/SGOT) 27 U/L 41 U/L Alanine Aminotransferase (ALT/SGPT) 18 U/L 29 U/L Total Bilirubin 0.4 MG/DL 0.9 MG/DL Sodium Level 147 MEQ/L 144 MEQ/L 141 MEQ/L Potassium Level 3.5 MEQ/L 3.4 MEQ/L 3.7 MEQ/L Chloride Level 116 MEQ/L 111 MEQ/L 108 MEQ/L Carbon Dioxide Level 25.3 MEQ/L 27.4 MEQ/L 29.3 MEQ/L Anion Gap 6 MEQ/L 6 MEQ/L 4 MEQ/L Estimat Glomerular Filtration Rate 102 ML/MIN 159 ML/MIN 132 ML/MIN White Blood Count 13.0 TH/MM3 10.8 TH/MM3 11.5 TH/MM3 Red Blood Count 2.04 MIL/MM3 2.93 MIL/MM3 3.15 MIL/MM3 Hemoglobin 6.2 GM/DL 9.0 GM/DL 9.7 GM/DL Hematocrit 18.7 % 25.8 % 27.7 % Mean Corpuscular Volume 91.3 FL 88.3 FL 88.1 FL Mean Corpuscular Hemoglobin 30.6 PG 30.6 PG 30.7 PG Mean Corpuscular Hemoglobin Concent 33.5 % 34.7 % 34.8 % Red Cell Distribution Width 13.0 % 13.6 % 13.6 % Platelet Count 160 TH/MM3 155 TH/MM3 192 TH/MM3 Mean Platelet Volume 8.4 FL 8.6 FL 8.7 FL Neutrophils (%) (Auto) 80.9 % 73.2 % 76.4 % Lymphocytes (%) (Auto) 11.6 % 16.5 % 13.2 % Monocytes (%) (Auto) 7.2 % 9.2 % 8.6 % Eosinophils (%) (Auto) 0.1 % 0.7 % 1.0 % Basophils (%) (Auto) 0.2 % 0.4 % 0.8 % Neutrophils # (Auto) 10.5 TH/MM3 7.9 TH/MM3 8.8 TH/MM3 Lymphocytes # (Auto) 1.5 TH/MM3 1.8 TH/MM3 1.5 TH/MM3 Monocytes # (Auto) 0.9 TH/MM3 1.0 TH/MM3 1.0 TH/MM3 Eosinophils # (Auto) 0.0 TH/MM3 0.1 TH/MM3 0.1 TH/MM3 Basophils # (Auto) 0.0 TH/MM3 0.0 TH/MM3 0.1 TH/MM3 CBC Comment DIFF FINAL DIFF FINAL AUTO DIFF Differential Comment AUTO DIFF CONFIRMED Platelet Estimate NORMAL Platelet Morphology Comment NORMAL Hemoglobin A1c 5.5 % Free Thyroxine 1.27 NG/DL Thyroid Stimulating Hormone 3rd Gen 2.880 uIU/ML Imaging Last Impressions Hip X-Ray 07/08/17 0000 Signed Impressions: Service Date/Time: June 10:41 - CONCLUSION: Fluoroscopic images during placement of dynamic compression pin in right hip. Bar Horne MD Knee X-Ray 07/07/17 0000 Signed Impressions: Service Date/Time: Friday, July 07, 2017 15:03 - CONCLUSION: Mild osteoporosis without fracture. Soft tissue swelling. Bar Horne MD Hip and Pelvis X-Ray 07/07/17 0000 Signed Impressions: Service Date/Time: Friday, July 07, 2017 15:03 - CONCLUSION: Displaced right femoral neck fracture. Bar Horne MD Chest X-Ray 07/07/17 0000 Signed Impressions: Service Date/Time: Friday, July 07, 2017 16:30 - CONCLUSION: No acute cardiopulmonary abnormality is identified. Roel King MD Objective Remarks GENERAL: Awake and alert and confused SKIN: Warm and dry. HEAD: Atraumatic. Normocephalic. EYES: Pupils equal and round. No scleral icterus. No injection or drainage. ENT: No nasal bleeding or discharge. Mucous membranes pink and moist. Tongue is midline NECK: Trachea midline. No JVD. Neck is supple CARDIOVASCULAR: Regular rate and rhythm. S1-S2 no S3 or S4 RESPIRATORY: No accessory muscle use. Clear to auscultation. Breath sounds equal bilaterally. GASTROINTESTINAL: Abdomen soft, non-tender, nondistended. Hepatic and splenic margins not palpable. MUSCULOSKELETAL: Extremities without clubbing, cyanosis, or edema. No obvious deformities. NEUROLOGICAL: Awake and alert. No obvious cranial nerve deficits. Motor grossly within normal limits. Five out of 5 muscle strength in the arms and legs. Normal speech. PSYCHIATRIC: INAppropriate mood and affect; insight and judgment ABnormal. Appears to be at baseline per family Procedures cc: Willy Bowden MD Operative Report Date of Surgery: Jul 08, 2017 Preoperative Diagnosis: Right hip intertrochanteric fracture Postoperative Diagnosis: Procedure: Right hip reduction and intramedullary nail fixation Anesthesia: Gen. Surgeon: Medications and IVs Current Medications IV Flush (NS Flush) 2 ml UNSCH PRN IV FLUSH FLUSH AFTER USING IV ACCESS; Start 07/07/17 at 14:30; Stop 07/07/17 at 17:07; Status DC Sodium Chloride 1,000 ml @ 1,000 mls/hr Q1H IV Last administered on 07/07/17 14:47; Start 07/07/17 at 14:20; Stop 07/07/17 at 15:19; Status DC Morphine Sulfate (Morphine Inj) 4 mg ONCE ONCE IV PUSH Last administered on 14:47; Start 07/07/17 at 14:30; Stop 07/07/17 at 14:31; Status DC Sodium Chloride 1,000 ml @ 999 mls/hr BOLUS ONCE IV Last administered on 07/07 16:53; Start 07/07/17 at 16:15; Stop 07/07/17 at 17:15; Status DC Piperacillin Sod/ Tazobactam Sod 100 ml @ 200 mls/hr ONCE ONCE IV Last administered on 07/07/17 16:53; Start 07/07/17 at 16:15; Stop 07/07/17 at 16:44 ; Status DC Vancomycin HCl 1000 mg/Sodium Chloride 250 ml @ 250 mls/hr ONCE ONCE IV Last administered on 07/07/17 16:53; Start 07/07/17 at 16:15; Stop 07/07/17 at 17:14 ; Status DC Sodium Chloride 1,000 ml @ 100 mls/hr Q10H IV Last administered on 07/09/17 09:03; Start 07/07/17 at 17:00; Stop 07/09/17 at 09:46; Status DC Sodium Chloride (NS Flush) 2 ml UNSCH PRN IV FLUSH FLUSH AFTER USING IV ACCESS ; Start 07/07/17 at 17:00; Stop 07/08/17 at 12:13; Status DC Sodium Chloride (NS Flush) 2 ml BID IV FLUSH Last administered on 07/07/17 21: 00; Start 07/07/17 at 21:00; Stop 07/08/17 at 12:13; Status DC Acetaminophen (Tylenol) 650 mg Q4H PRN PO TEMP > 100.4; Start 07/07/17 at 17:00 Ondansetron HCl (Zofran Inj) 4 mg Q6H PRN IVP NAUSEA OR VOMITING; Start at 17:00 Naloxone HCl (Narcan Inj) 0.4 mg UNSCH PRN IV PUSH SEE LABEL COMMENTS; Start at 17:00 Senna/Docusate Sodium (Renuka-Colace) 1 tab BID PO Last administered on 08:33; Start 07/07/17 at 21:00 Magnesium Hydroxide (Milk Of Magnesia Liq) 30 ml Q12H PRN PO MILD - MODERATE CONSTIPATION; Start 07/07/17 at 17:00 Sennosides (Senokot) 17.2 mg Q12H PRN PO MODERATE - SEVERE CONSTIPATION Last administered on 07/10/17 19:47; Start 07/07/17 at 17:00 Bisacodyl (Dulcolax Supp) 10 mg DAILY PRN RECTAL SEVERE CONSITIPATION; Start at 17:00 Lactulose (Lactulose Liq) 30 ml DAILY PRN PO SEVERE CONSITIPATION; Start at 17:00 Pharmacy Profile Note 0 ml @ 0 mls/hr UNSCH OTHER ; Start 07/07/17 at 17:15; Stop 07/09/17 at 15:25; Status DC Cefepime HCl 1000 mg/Sodium Chloride 100 ml @ 200 mls/hr Q24H IV Last administered on 07/08/17 17:37; Start 07/07/17 at 18:00; Stop 07/09/17 at 15:25 ; Status DC Morphine Sulfate (Morphine Inj) 2 mg Q3H PRN IV PUSH pain 4-10 Last administered on 07/07/17 18:59; Start 07/07/17 at 18:00 Lactated Ringer's 1,000 ml @ 30 mls/hr Q24H PRN IV SEE LABEL COMMENTS; Start at 23:45; Stop 07/10/17 at 23:44; Status DC Povidone Iodine (Betadine 5% Antisepsis Kit) [address] [employer] PRN EACH NARE SEE LABEL COMMENTS; Start 07/07/17 at 23:45; Stop 07/10/17 at 23:44; Status DC Chlorhexidine Gluconate (Chlorhexidine 2% Cloth) [address] [employer] PRN TOPICAL SEE LABEL COMMENTS; Start 07/07/17 at 23:45; Stop 07/10/17 at 23:44; Status DC Insulin Human Regular (NovoLIN R INJ) See Protocol Table ... [facility] [employer] PRN SQ SEE PROTOCOL TABLE; Start 07/07/17 at 23:45; Stop 07/10/17 at 23:44; Status DC Vancomycin HCl 1000 mg/Sodium Chloride 250 ml @ 250 mls/hr Q12H IV Last administered on 07/09/17 09:10; Start 07/08/17 at 10:00; Stop 07/09/17 at 15:25 ; Status DC Miscellaneous Information SPECIFIC LAB TO BE DRAWN:VANCOMYCIN TROUGH DATE TO... ONCE ONCE .XX ; Start 07/09/17 at 21:45; Stop 07/09/17 at 21:46; Status Cancel Vancomycin HCl (Vancomycin Inj) 1,000 mg STK-MED ONCE .ROUTE Last administered on 07/08/17 10:15; Start 07/08/17 at 09:32; Stop 07/08/17 at 09:33; Status DC Bupivacaine HCl/ Epinephrine Bitart (Sensorcaine-Epinephrine Pf 0.5% Inj) 10 ml STK-MED ONCE .ROUTE Last administered on 07/08/17 10:29; Start 07/08/17 at 09: 32; Stop 07/08/17 at 09:33; Status DC Gentamicin Sulfate (Gentamicin Inj) 240 mg STK-MED ONCE .ROUTE Last administered on 07/08/17 10:29; Start 07/08/17 at 09:32; Stop 07/08/17 at 09:33 ; Status DC Sodium Chloride 250 ml @ As Directed STK-MED ONCE .ROUTE Last administered on 07/08/17 10:15; Start 07/08/17 at 09:32; Stop 07/08/17 at 09:33; Status DC Ketamine HCl (Ketalar Inj) 500 mg STK-MED ONCE .ROUTE ; Start 07/08/17 at 10:04 ; Stop 07/08/17 at 10:05; Status DC Sugammadex Sodium (Bridion Inj) 200 mg STK-MED ONCE IV PUSH ; Start 07/08/17 at 10:44; Stop 07/08/17 at 10:45; Status DC IV Flush (NS Flush) 2 ml UNSCH PRN IVF FLUSH AFTER USING IV ACCESS; Start 07/08 at 10:45 IV Flush (NS Flush) 2 ml BID IVF Last administered on 07/10/17 09:33; Start at 21:00 Enoxaparin Sodium (Lovenox Inj) 30 mg Q24H SQ Last administered on 07/11/17 09 :37; Start 07/09/17 at 10:00 Cefazolin Sodium 1000 mg/Sodium Chloride 100 ml @ 200 mls/hr Q8H IV Last administered on 07/09/17 04:57; Start 07/08/17 at 13:00; Stop 07/09/17 at 05:29 ; Status DC Calcium/Vitamin D (Oscal-D 250-125) 250 mg TID PO Last administered on 19:46; Start 07/08/17 at 13:00 Diphenhydramine HCl (Benadryl) 25 mg Q6H PRN PO ITCHING; Start 07/08/17 at 10: 45 Acetaminophen/ Hydrocodone Bitart (Pe Ell 7.5-325 Mg) 1 tab Q3H PRN PO pain 3< 10 Last administered on 07/11/17 08:33; Start 07/08/17 at 10:45 Cholecalciferol (Vitamin D3) 5,000 units DAILY PO Last administered on 08:33; Start 07/09/17 at 09:00 Ergocalciferol (Drisdol) 50,000 units ONCE ONCE PO ; Start 07/08/17 at 12:30; Stop 07/08/17 at 12:31; Status DC Albuterol Sulfate (*ALBUTEROL NEB PERIprocedure ONLY) 2.5 mg STK-MED ONCE NEB Last administered on 07/08/17 11:25; Start 07/08/17 at 11:25; Stop 07/08/17 at 11:26; Status DC Miscellaneous Information ALL NURSING DEPARTME... UNSCH PRN .XX SEE LABEL COMMENTS; Start 07/08/17 at 11:10; Stop 07/09/17 at 11:09; Status DC Potassium Phosphate 15 mmol/ Sodium Chloride 155 ml @ 38.75 mls/ hr ONCE ONCE IV Last administered on 07/09/17 10:41; Start 07/09/17 at 11:00; Stop at 14:59; Status DC Potassium Chloride/Dextrose/ Sod Cl 1,000 ml @ 84 mls/hr [id number] IV Last administered on 07/09/17 10:42; Start 07/09/17 at 09:45 Escitalopram Oxalate (Lexapro) 20 mg DAILY PO Last administered on 07/11/17 08 :33; Start 07/10/17 at 09:00 Lamotrigine (LaMICtal) 25 mg DAILY PO Last administered on 07/11/17 08:33; Start 07/10/17 at 09:00 Patient Own Medication namzaric 28,/10 daily* DAILY PO Last administered on 17:52; Start 07/10/17 at 09:00; Status Future hold Magnesium Sulfate/ Dextrose 100 ml @ 100 mls/hr Q1H IV Last administered on 16:40; Start 07/10/17 at 14:00; Stop 07/10/17 at 15:59; Status DC Sodium Phosphate 30 mmol/Sodium Chloride 260 ml @ 43.333 mls/ hr ONCE ONCE IV Last administered on 07/10/17 14:00; Start 07/10/17 at 14:00; Stop 07/10/17 at 19:59; Status DC Potassium Bicarbonate (Effer-K Eff) 50 meq DAILY PO Last administered on 08:32; Start 07/10/17 at 14:00 A/P Problem List: (1) Femoral neck fracture ICD Code: S72.009A - Fracture of unspecified part of neck of unspecified femur , initial encounter for closed fracture Status: Acute (2) Sepsis ICD Code: A41.9 - Sepsis, unspecified organism Status: Acute (3) Renal insufficiency ICD Code: N28.9 - Disorder of kidney and ureter, unspecified Status: Acute (4) Dementia ICD Code: F03.90 - Unspecified dementia without behavioral disturbance Status: Acute Assessment and Plan 67-year-old female with a history of severe dementia presented with a fall Right femoral neck fracture -Secondary to mechanical fall. Found on chest x-ray. -Orthopedic surgery consulted by ED. -Will give supportive care with pain control pending recommendation from orthopedic surgeon. - 07/08 sp Right hip surgery. Pain control as per orthopedic surgery. SIRS -Patient has elevated WBC around 22,000 and heart rate 110. UA negative and chest x-ray negative. No infectious source. -Patient given Zosyn and vancomycin the ED. Will treat empirically for infection pending complete workup. Continue with vancomycin and start cefepime renally dose. We will have pharmacy dose vancomycin. 07/08 Blood cultures negative x1. WBC down to 18 K. Continue to monitor cbc w diff. UA negative, CXR without acute disease. No skin lesions. Continue IV Vancomycin and IV Cefepime. BIANCA -Unsure if this is acute renal failure versus chronic versus acute on chronic renal failure. There is no baseline. BUN is elevated will suggest dehydration. -Strict ins and outs. -Avoid nephrotoxins. -Continue to monitor creatinine. 07/08 Creatinine improving and trending down. Continue IV fluids. Severe dementia -Will resume home medication once medication is updated in the EMR system. Anemia -Hemoglobin went down after surgical procedure. Possible acute on chronic post op anemia. Hemoglobin went down from 10 to 7.7. PAtient asymptomatic. - Transfuse for hemoglobin <7 or symptomatic anemia. DVT prophylaxis -Anticipating surgery. SCDs. Chemoprophylaxis per orthopedic surgeon. Hypokalemia Will replace Due to severe dementia which will affect her rehabilitation potential patient has a poor prognosis. DC TO SNF WHEN BED AVAILABLE Discharge Planning TO SNF WHEN BED AVAILABLE AND APPROVED BY [facility] Problem Qualifiers (1) Femoral neck fracture: Qualified Codes: S72.001A - Fracture of unspecified part of neck of right femur , initial encounter for closed fracture (2) Sepsis: Qualified Codes: A41.9 - Sepsis, unspecified organism (3) Dementia: Qualified Codes: F03.91 - Unspecified dementia with behavioral disturbance Jeremy Hernández DO Jul 11, 2017 11:51
[2017-07-11] MEDS ORDERED: Lactulose Liq PO (11:56)
[2017-07-11] MEDS ORDERED: SENN8.6T15 PO (11:56)
[2017-07-11] MEDS ORDERED: MAGN400S PO (11:56)
[2017-07-11] MEDS ORDERED: BENA25CA4 PO (11:56)
[2017-07-11] MEDS ORDERED: SENN1TAB PO (11:56)
[2017-07-11] MEDS ORDERED: ESCI20TA PO (11:56)
[2017-07-11] MEDS ORDERED: BISA10R RECTAL (11:56)
[2017-07-11] MEDS ORDERED: KLORCONEF PO (11:56)
[2017-07-11] MEDS ORDERED: LAMO25 PO (11:56)
[2017-07-11] MEDS ORDERED: MEMA1CAP2 PO (11:58)
[2017-07-11 12:00] VITALS: BP 121/74; PULSE 90; RESP 19; TEMP 98.6; O2SAT 96
--- NOTE | 2017-07-11 12:04 | HHI.DS ---
Discharge Summary Admission Date Jul 07, 2017 at 16:26 Discharge Date: Jul 11, 2017 Admitting Diagnosis hip fracture, dementia, sepsis, renal insufficiency (1) Femoral neck fracture ICD Code: S72.009A - Fracture of unspecified part of neck of unspecified femur , initial encounter for closed fracture Diagnosis: Principal Status: Acute (2) Sepsis ICD Code: A41.9 - Sepsis, unspecified organism Diagnosis: Secondary Status: Acute (3) Renal insufficiency ICD Code: N28.9 - Disorder of kidney and ureter, unspecified Diagnosis: Secondary Status: Acute (4) Dementia ICD Code: F03.90 - Unspecified dementia without behavioral disturbance Diagnosis: Principal Status: Acute Procedures cc: Willy Bowden MD Operative Report Date of Surgery: Jul 08, 2017 Preoperative Diagnosis: Right hip intertrochanteric fracture Postoperative Diagnosis: Procedure: Right hip reduction and intramedullary nail fixation Anesthesia: Gen. Surgeon: Brief History - From Admission This is a 67-year-old female with severe dementia who presented with a fall. History taken from patient's . Patient's stated that he tried to change her clothes but she was agitated and she fell and hit the tub. Patient did not hit her head and did not lose any consciousness. When tried to move patient she was in pain so he took her to the hospital. stated that patient has been diagnosed with dementia like 4-5 years ago. She was told by a neurologist here that she has senile dementia . At baseline patient does not speak. He stated maybe once in a while she would say some words. She intermittently follows commands and becomes agitated at times. This has been worsening over time. Patient has good appetite. She is in a diaper. Dealt with patient's nurse and she stated that patient has stool in her vaginal area and around her urethra area. denied any changes in behavior before her fall. Denies any fevers or chills. He stated that she was acting her normal self before the fall. Patient has not had labs done in many years. Unsure if patient has chronic kidney disease but stated that he was never told this. Unable to get review of system since patient's severe dementia. Patient is nonverbal. CBC/BMP: 07/11/17 0113 07/11/17 0113 Significant Findings Laboratory Tests Test 07/09/17 06:31 07/09/17 06:36 07/10/17 04:26 07/11/17 01:13 Total Protein 5.0 GM/DL (6.4-8.2) 5.2 GM/DL (6.4-8.2) Albumin 2.3 GM/DL (3.4-5.0) 2.3 GM/DL (3.4-5.0) 2.3 GM/DL (3.4-5.0) Calcium Level 7.5 MG/DL (8.5-10.1) 7.6 MG/DL (8.5-10.1) 7.5 MG/DL (8.5-10.1) Phosphorus Level 1.4 MG/DL (2.5-4.9) 1.5 MG/DL (2.5-4.9) 2.0 MG/DL (2.5-4.9) Sodium Level 147 MEQ/L (136-145) Chloride Level 116 MEQ/L (98-107) 111 MEQ/L (98-107) 108 MEQ/L (98-107) White Blood Count 13.0 TH/MM3 (4.0-11.0) 11.5 TH/MM3 (4.0-11.0) Red Blood Count 2.04 MIL/MM3 (4.00-5.30) 2.93 MIL/MM3 (4.00-5.30) 3.15 MIL/MM3 (4.00-5.30) Hemoglobin 6.2 GM/DL (11.6-15.3) 9.0 GM/DL (11.6-15.3) 9.7 GM/DL (11.6-15.3) Hematocrit 18.7 % (35.0-46.0) 25.8 % (35.0-46.0) 27.7 % (35.0-46.0) Neutrophils (%) (Auto) 80.9 % (16.0-70.0) 73.2 % (16.0-70.0) 76.4 % (16.0-70.0) Neutrophils # (Auto) 10.5 TH/MM3 (1.8-7.7) 7.9 TH/MM3 (1.8-7.7) 8.8 TH/MM3 (1.8-7.7) Monocytes (%) (Auto) 9.2 % (0.0-8.0) 8.6 % (0.0-8.0) Monocytes # (Auto) 1.0 TH/MM3 (0-0.9) 1.0 TH/MM3 (0-0.9) Creatinine 0.40 MG/DL (0.50-1.00) 0.47 MG/DL (0.50-1.00) Potassium Level 3.4 MEQ/L (3.5-5.1) Random Glucose 109 MG/DL (74-106) Aspartate Amino Transf (AST/SGOT) 41 U/L (15-37) Anion Gap 4 MEQ/L (5-15) Imaging Last Impressions Hip X-Ray 07/08/17 0000 Signed Impressions: Service Date/Time: June 10:41 - CONCLUSION: Fluoroscopic images during placement of dynamic compression pin in right hip. Bar Horne MD Knee X-Ray 07/07/17 0000 Signed Impressions: Service Date/Time: Friday, July 07, 2017 15:03 - CONCLUSION: Mild osteoporosis without fracture. Soft tissue swelling. Bar Horne MD Hip and Pelvis X-Ray 07/07/17 0000 Signed Impressions: Service Date/Time: Friday, July 07, 2017 15:03 - CONCLUSION: Displaced right femoral neck fracture. Bar Horne MD Chest X-Ray 07/07/17 0000 Signed Impressions: Service Date/Time: Friday, July 07, 2017 16:30 - CONCLUSION: No acute cardiopulmonary abnormality is identified. Roel King MD PE at Discharge GENERAL: Awake and alert and confused SKIN: Warm and dry. HEAD: Atraumatic. Normocephalic. EYES: Pupils equal and round. No scleral icterus. No injection or drainage. ENT: No nasal bleeding or discharge. Mucous membranes pink and moist. Tongue is midline NECK: Trachea midline. No JVD. Neck is supple CARDIOVASCULAR: Regular rate and rhythm. S1-S2 no S3 or S4 RESPIRATORY: No accessory muscle use. Clear to auscultation. Breath sounds equal bilaterally. GASTROINTESTINAL: Abdomen soft, non-tender, nondistended. Hepatic and splenic margins not palpable. MUSCULOSKELETAL: Extremities without clubbing, cyanosis, or edema. No obvious deformities. NEUROLOGICAL: Awake and alert. No obvious cranial nerve deficits. Motor grossly within normal limits. Five out of 5 muscle strength in the arms and legs. Normal speech. PSYCHIATRIC: INAppropriate mood and affect; insight and judgment ABnormal. Appears to be at baseline per family Hospital Course This is a 67-year-old female with severe dementia who presented with a fall. History taken from patient's . Patient's stated that he tried to change her clothes but she was agitated and she fell and hit the tub. Patient did not hit her head and did not lose any consciousness. When tried to move patient she was in pain so he took her to the hospital. stated that patient has been diagnosed with dementia like 4-5 years ago. She was told by a neurologist here that she has senile dementia . At baseline patient does not speak. He stated maybe once in a while she would say some words. She intermittently follows commands and becomes agitated at times. This has been worsening over time. Patient has good appetite. She is in a diaper. Dealt with patient's nurse and she stated that patient has stool in her vaginal area and around her urethra area. denied any changes in behavior before her fall. Denies any fevers or chills. He stated that she was acting her normal self before the fall. Patient has not had labs done in many years. Unsure if patient has chronic kidney disease but stated that he was never told this. Unable to get review of system since patient's severe dementia. Patient is nonverbal. No current complaints at this time Her son is sitting at bedside Seen with RN in attendance Not cleared by orthopedic surgeon for discharge at this time 9-24 HAS BEEN CLEARED BY ORTHO FOR DC AWAIT SNF PLACEMENT NEEDS APPROVAL BY [facility] DC TO SNF WHEN BE AVAILABLE Pt Condition on Discharge: Good Discharge Disposition: Discharge to SNF Discharge Time: > 30 minutes Discharge Instructions DIET: Follow Instructions for: Heart Healthy Diet Speech Therapy-Diet Recommends: Regular Activities you can perform: Weight Bearing as Alvaro Follow up Referrals: Orthopedics - 2 Weeks @ [facility] with Willy Bowden MD PCP Follow-up - 2 Weeks New Medications: Calcium Carbonate-Vitamin D (Calcium 600+D 200) 600-200 Mg-Unit Tab 1 TAB PO BID for Nutritional Supplement, #90 TAB 0 Refills Ergocalciferol (Ergocalciferol) 50,000 Unit Cap 60143 UNITS PO Q7D for Nutritional Supplement, #8 CAP Hydrocodone-Acetaminophen (Hydrocodone-Acetaminophen) 7.5-325 mg Tab 1 TAB PO Q4H PRN for PAIN, #50 TAB 0 Refills Memantine-Donepezil (Namzaric) 28-10 Mg Cap 1 CAP PO HS for Alzheimer Dementia, #30 CAP 0 Refills Rivaroxaban (Xarelto) 10 Mg Tab 10 MG PO DAILY for Blood Clot Prevention, #14 TAB 0 Refills Walker/Adult/Folding (Walker/Adult/Folding) 1 Mis Mis EA .ROUTE DIRECTED, #1 0 Refills Bisacodyl Supp (Bisac-Evac Supp) 10 Mg Supp 10 MG RECTAL DAILY PRN for SEVERE CONSITIPATION, #30 SUPP Diphenhydramine HCl (Benadryl Allergy) 25 Mg Cap 25 MG PO Q6H PRN for ITCHING, #60 CAP Escitalopram (Escitalopram) 20 Mg Tab 20 MG PO DAILY for Depression Control, #30 TAB Lamotrigine (Lamictal) 25 Mg Tab 25 MG PO DAILY for Seizure Control, #30 TAB Magnesium Hydroxide (Eq Milk of Magnesia) 400 Mg/5 Ml Jessa 30 ML PO Q12H PRN for MILD - MODERATE CONSTIPATION, #60 ML Potassium Bicarbonate Effervescent (K-Vescent) 25 Meq Tab 50 MEQ PO DAILY for Electrolyte Replacement, #60 TAB Sennosides (Senna Lax) 8.6 Mg Tab 17.2 MG PO Q12H PRN for MODERATE - SEVERE CONSTIPATION, #120 TAB Sennosides-Docusate Sodium (Senna Plus 8.6-50 mg) 8.6 Mg-50 Mg Tab 2 TAB PO BID for Constipation, #120 TAB [Lactulose Liq] () 30 ML SYRP 30 ML PO DAILY PRN for SEVERE CONSITIPATION, #900 ML Jeremy Hernández DO Jul 11, 2017 12:04
[2017-07-11] MEDS: CALCIUM/VITAMIN D 250 MG/125 U TAB PO SCH (13:00)
--- NOTE | 2017-07-11 14:04 | EKG ---
Date Performed: 07/11/2017 Time Performed: 00:29:38 PTAGE: 67 years EKG: Sinus tachycardia with PAC(s). Normal ECG except for rate PREVIOUS TRACING 07/07/17 Since previous tracing, the PACs are new. Heart rate is faster. DOCTOR: Parveen Spear Interpretating Date/Time 07/11/2017 14:03:51
[2017-07-11 16:00] VITALS: BP 124/94; PULSE 88; RESP 19; TEMP 97.7; O2SAT 96
== END 2017-07-11 16:59 | DRG 536 ==
LOC: NEPC 12:35 → EDBD 16:26 → NEDA 16:26 → N06A 19:16
PROVIDERS: ADMIT Hospitalist; ATTEND Hospitalist
PROC: 30253N1 (ICD-10-PCS; principal; 2017-07-07)
DX: S72.141A Displaced intertrochanteric fracture of right femur, initial encounter for closed fracture (principal); N17.9 Acute kidney failure, unspecified; E87.0 Hyperosmolality and hypernatremia; F03.91 Unspecified dementia, unspecified severity, with behavioral disturbance; D64.9 Anemia, unspecified; W01.198A Fall on same level from slipping, tripping and stumbling with subsequent striking against other object, initial encounter; Y92.002 Bathroom of unspecified non-institutional (private) residence as the place of occurrence of the external cause; E87.6 Hypokalemia; F32.9 Major depressive disorder, single episode, unspecified; M81.0 Age-related osteoporosis without current pathological fracture; Z66 Do not resuscitate; R00.0 Tachycardia, unspecified
CPT/HCPCS: 36430; 71010; 73502; 73564; 76000; 80048; 80053; 80069; 80202; 81001; 82306; 82550; 82552; 83036; 83605; 83735; 84100; 84439; 84443; 84484; 85025; 85027; 85610; 86850; 86900; 86901; 86920; 87040; 93005; 94664; 96361; 96374; C1713; J0690; J0692; J1100; J1580; J1650; J2270; J2370; J2405; J2543; J3010; J3370; J3475; J3480; J7030; J7050; J7613; P9016